=== PATIENT | female | born 1980 | race Caucasian/White ===

== ENCOUNTER → 2018-08-24 12:21 | Outpatient (CLI) | payer BC, SELFPAY ==
[2018-08-24 12:49] LABS: Absolute Lymphocyte Count 2.05 X10^3/ul (0.83-4.51); Absolute Neutrophil Count 4.8 X10^3/uL (2.0-7.7); Basophil# 0.04 X10^3/uL; Basophil% 0.5 % (0-1); Eosinophil# 0.19 X10^3/uL; Eosinophils% 2.5 % (0-5); Hematocrit 37.1 % (37-47); Hemoglobin 11.7 g/dl (12.0-15.0); Lymphocyte # 2.05 X10^3/ul (4.0); Lymphocyte % 26.7 % (19-41); Mean Corp Hgb Conc 31.5 g/gl (32-36); Mean Corpuscular Hgb 26.6 pg (27.0-32.0); Mean Corpuscular Volume 84.3 fL (81-99); Monocyte# 0.64 X10^3/uL; Monocyte% 8.3 % (0-10); Neutrophil # 4.75 X10^3/uL (2.7-7.7); Neutrophil % 61.9 % (47-70); POSITIVE COUNT NO; POSITIVE DIFFERENTIAL NO; POSITIVE MORPHOLOGY NO; Platelet Count 342 K/mm3 (150-450); RBC Distribution Width CV 15.5 % (11.6-14.6); RBC Distribution Width SD 48.3 fl (35.1-43.9); White Blood Count 7.7 K/mm3 (4.4-11.0)
[2018-08-24 13:23] LABS: T4 Free Direct 0.91 ng/dL (0.76-1.46); Thyroid Stim Hormone (TSH) 2.53 uIU/mL (0.358-3.74)
== END ==
PROVIDERS: Family Provider Family Medicine; PCP Family Medicine; Referring Provider Obstetrics & Gynecology; Visit Provider Obstetrics & Gynecology
DX: N93.9 Abnormal uterine and vaginal bleeding, unspecified (principal)
CPT/HCPCS: 36415; 84439; 84443; 85025

== ENCOUNTER → 2018-09-01 14:28 | Outpatient (CLI) | payer BC, SELFPAY ==
--- NOTE | 2018-09-01 14:30 | US_ITS ---
STUDY: ULTRASOUND TRANSVAGINAL CLINICAL: Female, 37 years old. Irregular menstruation TECHNIQUE: Transvaginal COMPARISON: None. FINDINGS: The uterus is somewhat anteverted and measures 10.5 x 5.4 x 4.7 cm with an endometrial stripe thickness of 6.4 mm. An IUD is in the endometrial canal. Both ovaries are visualized and demonstrate normal Doppler flow with the right measuring 2.9 x 2.2 x 1.6 cm and the left 3.5 x 2.4 x 1.8 cm. A 1.4 cm cyst is in the right ovary. There is no free fluid in the cul-de-sac. US/Pelvic (Non ) IMPRESSION: An IUD is in good position. A 1.4 cm right ovarian cyst. The study is otherwise normal Electronically Signed: Avinash Rm MD at 4:20 EDT Tel , Service support ,
--- NOTE | 2018-09-01 14:30 | US_ITS ---
STUDY: ULTRASOUND TRANSVAGINAL CLINICAL: Female, 37 years old. Irregular menstruation TECHNIQUE: Transvaginal COMPARISON: None. FINDINGS: The uterus is somewhat anteverted and measures 10.5 x 5.4 x 4.7 cm with an endometrial stripe thickness of 6.4 mm. An IUD is in the endometrial canal. Both ovaries are visualized and demonstrate normal Doppler flow with the right measuring 2.9 x 2.2 x 1.6 cm and the left 3.5 x 2.4 x 1.8 cm. A 1.4 cm cyst is in the right ovary. There is no free fluid in the cul-de-sac. US/Transvaginal Non- IMPRESSION: An IUD is in good position. A 1.4 cm right ovarian cyst. The study is otherwise normal Electronically Signed: Avinash Rm MD at 4:20 EDT Tel , Service support ,
== END ==
PROVIDERS: Family Provider Family Medicine; PCP Family Medicine; Referring Provider Obstetrics & Gynecology; Visit Provider Obstetrics & Gynecology
DX: N93.9 Abnormal uterine and vaginal bleeding, unspecified (principal); N83.201 Unspecified ovarian cyst, right side
CPT/HCPCS: 76830; 76856

== ENCOUNTER → 2018-09-07 14:08 | Outpatient (CLI) | payer BC, SELFPAY ==
--- NOTE | 2018-09-07 | EMB_PTH ---
PATIENT: MARQUIS BRAVO LOC: [facility] U#:[id number] AGE/SX: 44/F ROOM: RE09/07/[address]: Dr. Lavinia Day MD : 1980 BED: DIS: SPEC #: [id number] RECD: 09/07/18 13:58 STATUS: ANGELICA MICKY #: [id number] LONG: 09/07/18 00:[address]: Lavinia Day DEPT: SURGICAL PATHOLOGY RECD BY: Nadine Booker ENTERED: 09/08/18 09:01 SP TYPE: ENDOM BX/C ERICKA DR: Dr. Alex Guerrero MD Tissues: Endometrium, NOS Procedures: Surgery Specimen Level IV HEADER OPERATION: Endometrial biopsy PRE-OP DIAGNOSIS: Abnormal uterine bleeding TISSUE SUBMITTED: Endometrium MICROSCOPIC DIAGNOSIS Endometrial biopsy: Secretory endometrium. SJ:rei 09/08/18 MICROSCOPIC DESCRIPTION Slides are reviewed. GROSS DESCRIPTION Received is one container labeled with the patient's name and not further designated. The specimen consists of multiple irregular fragments of pink soft tissue that in aggregate measure 2 x 1 x 0.1 cm. The specimen is totally submitted in one cassette. / SJ:rg 09/07/18 TC:4 CPT: 81781
== END ==
LOC: LABSPEC 14:10
PROVIDERS: Family Provider Family Medicine; PCP Family Medicine; Referring Provider Obstetrics & Gynecology; Visit Provider Obstetrics & Gynecology
DX: N93.9 Abnormal uterine and vaginal bleeding, unspecified (principal)
CPT/HCPCS: 88305

== ENCOUNTER 2018-11-12 10:42 | Day surgery (SDC) | payer BC, SELFPAY ==
[2018-10-26 13:49] VITALS: BMI 46.2
[2018-11-12] VITALS (12 sets, daily range): BP systolic 110–140; BP diastolic 57–80; PULSE 64–83; RESP 16–18; TEMP 36.3–37.4; O2SAT 93–99; BMI 45.5
--- NOTE | 2018-11-12 06:33 | HP.PCM_ITS ---
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 Is patient in pain?: No Allergies No Known Allergies Allergy (Verified 09/07/18 09:26) Medications Citalopram [Celexa] 20 mg PO DAILY 11/16/15 [History Confirmed 09/07/18] Cyclobenzaprine [Flexeril] 10 mg PO 4X/DAY 11/16/15 [History Confirmed 09/07/18] Iron Carbonyl [Feosol] 45 mg PO DAILYCM 11/16/15 [History Confirmed 09/07/18] Vitamin B Complex 1 ea PO DAILY 11/16/15 [History Confirmed 09/07/18] topiramate 50 mg tablet 50 mg PO BID 08/24/18 [History Confirmed 09/07/18] Is last menstrual period known: No Post menopausal: No Patient : No : No [facility] Medical History DVT (deep venous thrombosis) (Acute) Family History Mother H/O: hysterectomy Aunt H/O: hysterectomy Grandmother H/O: hysterectomy Social History number of children: 2 current occupational status: employed current occupation: [employer] Smoking Status: Never smoker alcohol intake: current alcohol intake frequency: holidays/special occasions only substance use type: does not use seatbelt use: always do you feel safe at home: Yes 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 She has had AUB failed medical management. Female Reproductive History Cycle Length: 21-35 Questions: Metorrhagia: No, Sexually active: Yes, Dyspareunia: No Pregancy History 3 Elective abortions Hx Para 2 Spontaneous abortions 1 Hx # Term Pregnancies Ectopic pregnancies Hx # Pregnancies Multiple births # of living children 2 Past Pregnancies Del. Date Name GA/Weeks Outcome Route Bth Weight Gen Labor Lgth Anesthesia Del Locatn Provider FOB Unknown Omnserrat 2004 Unknown Ray 2010 ROS Const Constitutional: Denies poor appetite, headache(s), fever(s), increased appetite, weight gain, weight loss or fatigue ENT ENT: Denies dry mouth GI GI: Reports as per HPI; denies vomiting, nausea, abdominal pain or constipation : Denies nipple discharge Skin Skin/Breast: Denies hair loss, change in hair, dry skin, breast pain, breast skin changes, breast lump or nipple discharge Exam Const General: cooperative, healthy appearing, comfortable, no acute distress, well developed Nutritional Appearance: average body habitus Orientation: alert HENMT Head: normal to inspection, normocephalic Ears: hearing grossly normal bilaterally, external ears normal Nose: external nose normal, nares normal Face and sinus: normal facial exam Neck Neck: normal visual inspection, trachea midline, no lymphadenopathy Thyroid: thyroid normal Resp Effort & Inspection: normal respiratory effort Musc Other: gross motor intact no deficits, full bilateral strength Skin General: no rashes or lesions noted Neuro Motor: muscle tone normal throughout Assessment & Plan Problems 1. Dysmenorrhea N94.6 2. Abnormal uterine bleeding N93.9 plan tvh bs Plan discussed alternatives. discussed surgical risks including risks of anesthesia, infection, bleeding, injury to bowel, bladder or blood vessels, and patient wishes to proceed with surgery. plan perioperative anticoagulation. UPDATE- I have seen the patient and performed any clinically relevant updates to the history and physical exam. Lavinia Day MD
[2018-11-12 11:18] LABS: Internal QC Validated? YES +Cl - CLEAR BKGD
[2018-11-12 11:22] LABS: Pregnancy, Urine Negative Negative
[2018-11-12] MEDS: Enoxaparin 40 MG/0.4 ML Syringe SC (11:43)
[2018-11-12] MEDS: Phenazopyridine 95 MG Tablet 190 MG PO (11:43)
--- NOTE | 2018-11-12 12:50 | HYST_PTH ---
PATIENT: MARQUIS BRAVO LOC: [facility] U#:[id number] AGE/SX: 38/F ROOM: RE11/12/[address]: Dr. Lavinia Day MD : 1980 BED: DIS: 11/13/2018 SPEC #: [id number] RECD: 11/12/18 15:06 STATUS: ANGELICA MICKY #: [id number] LONG: 11/12/18 12:[address]: Lavinia Day DEPT: SURGICAL PATHOLOGY RECD BY: Pedro Villalobos ENTERED: 11/13/18 12:13 SP TYPE: HYSTERECT OTHR DR: Dr. Alex Guerrero MD Tissues: Uterus, NOS Procedures: Surgery Specimen Level V HEADER OPERATION: Total vaginal hysterectomy, bilateral salpingectomy PRE-OP DIAGNOSIS: Dysmenorrhea; abnormal uterine bleeding TISSUE SUBMITTED: Uterus, cervix, bilateral fallopian tubes MICROSCOPIC DIAGNOSIS Uterus, cervix, bilateral fallopian tubes, vaginal hysterectomy and bilateral salpingectomy: Cervix - chronic inflammation and squamous metaplasia. Endometrium - proliferative endometrium. Myometrium - focal superficial adenomyosis. Bilateral fallopian tubes - no pathologic diagnosis. Paratubal cyst. SJ:rg 11/16/18 MICROSCOPIC DESCRIPTION Slides are reviewed. GROSS DESCRIPTION Received in fixative is one container labeled with the patient's name and designated uterus, cervix, bilateral fallopian tubes. The specimen consists of a hysterectomy specimen consisting of uterus with cervix and detached bilateral fallopian tubes. The uterus with cervix weighs 143 gm and measures 10 x 6 x 5 cm. The serosal surface is haddad, glistening. The ectocervical mucosa is unremarkable. The external os is oval in contour. The endocervical canal measures 3.5 cm in length and the endocervical mucosa is haddad, glistening and unremarkable. The triangular endometrial cavity measures 6 cm in length and up to 3.5 cm in width. The endometrium is haddad, glistening without mass lesion and measures up to 0.2 cm in thickness. Sections of the uterine wall do not reveal any mass lesion and it measures up to 2.5 cm in thickness. The detached fallopian tubes are not identified as right or left and measures 4.5 cm in length and 0.5 cm in diameter and 5 cm in length and 0.6 cm in diameter. The fimbrial ends are identified. Sections reveal unremarkable cut surfaces. Sections of one of the fallopian tubes also show a cyst filled with clear fluid measuring 0.5 cm in greatest dimension. Medical Review Specialist sections are submitted in eight cassettes as follows: 1 - anterior cervix, 2 - posterior cervix, 3 & 4 - anterior uterine wall, 5 & 6 - posterior uterine wall, 7 - one fallopian tube, 8 - second fallopian tube and paratubal cyst. / MARSHALL:rei 11/13/18 TC:5 CPT: 44478
[2018-11-12] MEDS: Vasopressin 20 UNITS/ML Vial (13:00)
--- NOTE | 2018-11-12 14:05 | PCM.OPRPT ---
Problem List (1) Abnormal uterine bleeding Status: Acute Comment: plan tvh bs (2) Dysmenorrhea Status: Acute Report of Operation Date of Procedure: 11/12/18 Pre-Operative Diagnosis: aub Post-Operative Diagnosis: same Surgery/Procedure Performed:: TVH BS Description of Surgical Findings:: normal uterus tubes ovaries log hauler: Natalia Lawson Type of Anesthesia:: General Special Medications: fidelina Specimen's removed: uterus tubes Drains: ledbetter Estimated Blood Loss (mL): 150 Fluids Replaced: crystalloid Description of Procedure: Patient was taken to the operating room and was placed under general anesthesia was prepped and draped in normal sterile fashion in the dorsal lithotomy position. Preoperative antibiotics and SCDs and Ledbetter catheter was placed inside the bladder. Weighted speculum was placed in the vagina and the anterior and posterior lip of the cervix was grasped with 2 Nedra clamps and circumferentially injected with dilute vasopressin. A circumferential incision was made with a scalpel and the posterior cul-de-sac was entered into sharply and a longneck speculum was placed. The anterior cul-de-sac was also dissected down and entered into sharply and the uterosacral ligaments were clamped cut and suture ligated bilaterally followed by the cardinal ligaments which were Clamped cut and suture ligated bilaterally with 0 Monocryl. The uterus serially descended and progressive bites were taken bilaterally up to the level of the utero-ovarian ligament bilaterally which was clamped transected and double ligated with 0 Monocryl suture and 0 Vicryl free tie. Bilateral fallopian tubes and ovaries were well visualized and noted be within normal limits and the bilateral fallopian tubes were transected across the base with a Margarita clamp and removed and sutured with 0 Vicryl suture. Excellent hemostasis was noted. Posterior peritoneum was reapproximated with 2-0 Vicryl and a modified Anne stitch was placed through the posterior vaginal cuff and bilateral uterosacral ligaments across the posterior cul-de-sac skimming along to provide apical support to the vagina. There was some oozing noted along the peritoneal cuff and so Fidelina was applied in the cul-de-sac during the closure. The vagina was closed with [id number] 0 Vicryl pop offs including the posterior and anterior peritoneum in the reapproximation. Excellent hemostasis was noted. All instruments removed from the vagina clear urine was noted at the end of the procedure and patient was awoken and taken recovery in stable condition. Grafts/Implants Used: none - Complications none - Admit VTE Documentation VTE Present on Admission: No VTE Mechan Device Prophylaxis: SCD's VTE Pharm Prophylaxis ordered?: Yes
--- NOTE | 2018-11-12 14:08 | OP.PCM_ITS ---
Problem List (1) Abnormal uterine bleeding Status: Acute Comment: plan tvh bs (2) Dysmenorrhea Status: Acute Report of Operation Date of Procedure: 11/12/18 Pre-Operative Diagnosis: aub Post-Operative Diagnosis: same Surgery/Procedure Performed:: TVH BS Description of Surgical Findings:: normal uterus tubes ovaries educational psychologist: Natalia Lawson Type of Anesthesia:: General Special Medications: fidelina Specimen's removed: uterus tubes Drains: ledbetter Estimated Blood Loss (mL): 150 Fluids Replaced: crystalloid Description of Procedure: Patient was taken to the operating room and was placed under general anesthesia was prepped and draped in normal sterile fashion in the dorsal lithotomy position. Preoperative antibiotics and SCDs and Ledbetter catheter was placed inside the bladder. Weighted speculum was placed in the vagina and the anterior and posterior lip of the cervix was grasped with 2 Nedra clamps and c ircumferentially injected with dilute vasopressin. A circumferential incision was made with a scalpel and the posterior cul-de-sac was entered into sharply and a longneck speculum was placed. The anterior cul-de-sac was also dissected down and entered into sharply and the uterosacral ligaments were clamped cut and suture ligated bilaterally followed by the cardinal ligaments which were Clamped cut and suture ligated bilaterally with 0 Monocryl. The uterus serially descended and progressive bites were taken bilaterally up to the level of the utero-ovarian ligament bilaterally which was clamped transected and double ligated with 0 Monocryl suture and 0 Vicryl free tie. Bilateral fallopian tubes and ovaries were well visualized and noted be within normal limits and the bilateral fallopian tubes were transected across the base with a Margarita clamp and removed and sutured with 0 Vicryl suture. Excellent hemostasis was noted. Posterior peritoneum was reapproximated with 2-0 Vicryl and a modified Anne stitch was placed through the posterior vaginal cuff and bilateral uterosacral ligaments across the posterior cul-de-sac skimming along to provide apical support to the vagina. There was some oozing noted along the peritoneal cuff and so Fidelina was applied in the cul-de-sac during the closure. The vagina was closed with [id number] 0 Vicryl pop offs including the posterior and anterior peritoneum in the reapproximation. Excellent hemostasis was noted. All instruments removed from the vagina clear urine was noted at the end of the procedure and patient was awoken and taken recovery in stable condition. Grafts/Implants Used: none - Complications none - Admit VTE Documentation VTE Present on Admission: No VTE Mechan Device Prophylaxis: SCD's VTE Pharm Prophylaxis ordered?: Yes
[2018-11-12] MEDS: Lactated Ringers 1,000 ML 125 ML IV (16:25)
[2018-11-12] MEDS: HYDROmorphone 1 MG/ML Syringe IV (16:25)
[2018-11-12] MEDS: Ketorolac 30 MG/ML Syringe IV (20:45)
[2018-11-12] MEDS: Topiramate 25 MG Tablet 75 MG PO (21:06)
[2018-11-12] MEDS: Nortriptyline 25 MG Capsule 50 MG PO (21:06)
[2018-11-13 02:00] VITALS: BP 97/58; PULSE 77; RESP 16; TEMP 37.4; O2SAT 94
[2018-11-13] MEDS: Ketorolac 30 MG/ML Syringe IV ×2 (02:06→07:45)
[2018-11-13] MEDS: Lactated Ringers 1,000 ML 125 ML IV (02:07)
[2018-11-13 06:03] LABS: Hematocrit 36.4 % (37-47); Mean Corpuscular Hgb 27.8 pg (27.0-32.0); Mean Corpuscular Volume 84.3 fL (81-99); Mean Platelet Vol. 9.6 fl (6.2-12.0); Platelet Count 366 K/mm3 (150-450); RBC Distribution Width CV 14.4 % (11.6-14.6); RBC Distribution Width SD 43.5 fl (35.1-43.9); Red Blood Count 4.32 M/mm3 (4.2-5.4); White Blood Count 10.9 K/mm3 (4.4-11.0)
[2018-11-13 06:09] LABS: Scan Indicated on CBC? Y/N NO
[2018-11-13 06:16] LABS: Creatinine, Serum 0.74 mg/dL (0.55-1.02); EST Glomerular Filtration Rate 94 mL/min (>60); Est Glom Filt Rate - Afr Amer 114 mL/min (>60)
[2018-11-13 07:38] VITALS: PULSE 92; RESP 18; TEMP 37.1; O2SAT 95
[2018-11-13] MEDS: Citalopram 20 MG Tablet PO (07:45)
[2018-11-13] MEDS: 0.9% NaCl Peripheral Flush Adult/Peds IV (07:45)
[2018-11-13] MEDS: Topiramate 25 MG Tablet 75 MG PO (07:45)
[2018-11-13] MEDS: Enoxaparin 40 MG/0.4 ML Syringe SC (10:13)
--- NOTE | 2018-11-13 10:21 | DCINST_ITS ---
Discharge Diet: No Restrictions Discharge Activity: Return to Normal Activity, May Not Drive, May Shower May resume sexual activity in: 6-8 weeks Call your doctor if your incision/area has: Continuous Slow Oozing, Sudden Increased Bleeding, Increased Pain/ Swelling, Increased Redness, Foul Smelling Discharge Call your doctor if you observe: Fever of 101 or Higher, Inability to urinate, Inability to have a bowel movement, Using more than one pad per hour Allergies/Adverse Reactions: Allergies No Known Allergies Allergy (Verified 11/05/18 11:32) Medications to take at Discharge Citalopram [Celexa] 20 mg PO DAILY 11/16/15 topiramate 50 mg tablet 75 mg PO BID 08/24/18 Nortriptyline HCl [Pamelor] 50 mg PO QHS 11/05/18 Naproxen [Naprosyn] 250 - 500 mg PO Q8H PRN PRN #30 tablet 11/12/18 Oxycodone HCl/Acetaminophen [Percocet 5-325] 1 - 2 tablet PO Q4H PRN PRN 7 Days #28 tablet 11/12/18 The following prescriptions were given: Oxycodone HCl/Acetaminophen [Percocet 5-325] 1 - 2 tablet PO Q4H PRN PRN 7 Days #28 tablet PRN Reason: Moderate-Severe pain Naproxen [Naprosyn] 250 - 500 mg PO Q8H PRN PRN #30 tablet PRN Reason: MILD PAIN Orders to be completed after discharge: Type & Screen Time Frame: 11/12/18, Location: None Selected Primary Care Physician: Alex Guerrero MD [Primary Care Provider] - Test Results: Test results from this visit will be discussed in further detail at your follow- up appointment, if applicable. Please Follow Up With: Lavinia Day MD - [phone]
[2018-11-13] MEDS: oxyCODONE 5 MG Tablet PO (11:42)
[2018-11-13 11:49] VITALS: BP 114/61; PULSE 88; RESP 18; TEMP 37.3; O2SAT 96
== END 2018-11-13 14:07 | disposition home or self-care (01) ==
LOC: SDC 10:43 → AC 10:44 → MS3 11-13 08:22
PROVIDERS: Anesthesiology; Family Provider Family Medicine; PCP Family Medicine; Referring Provider Obstetrics & Gynecology; Visit Provider Obstetrics & Gynecology
PROC: (CPT 58260; principal; 2018-11-12 12:30)
DX: N93.9 Abnormal uterine and vaginal bleeding, unspecified (principal); N94.6 Dysmenorrhea, unspecified; N87.9 Dysplasia of cervix uteri, unspecified; N80.0 Endometriosis of uterus; N83.8 Other noninflammatory disorders of ovary, fallopian tube and broad ligament
CPT/HCPCS: 00944; 58262; 36415; 81025; 82565; 85027; 86850; 86900; 88307; J7120; A4216; J2405

== ENCOUNTER → 2019-10-25 08:13 | Outpatient (CLI) | payer BC, SELFPAY ==
[2018-12-21 10:43] VITALS: BMI 45.5
[2019-10-25 10:22] LABS: Anion Gap 6 (5-15); BUN 14 mg/dL (7-18); BUN/Creat Ratio 16.9 RATIO (10-20); Calcium,Total 8.6 mg/dL (8.5-10.1); Chloride 109 mmol/L (98-107); Cholesterol 189 mg/dL (200); Creatinine, Serum 0.83 mg/dL (0.55-1.02); EST Glomerular Filtration Rate 82 mL/min (>60); Est Glom Filt Rate - Afr Amer 99 mL/min (>60); Glucose 85 mg/dL (74-106); High Density Lipoprotein 52 mg/dL; Potassium 3.5 mmol/L (3.5-5.1); Sodium Level 140 mmol/L (136-145); Triglycerides 60 mg/dL; Very Low Density Lipoprotein 12 mg/dL (5-40)
[2019-10-25 10:24] LABS: Vitamin D,25 Hydroxy 26.5 ng/mL (29.95-100.01)
== END ==
LOC: MFPLAB 08:14
PROVIDERS: Family Provider Family Medicine; PCP Family Medicine; Referring Provider Family Medicine; Visit Provider Family Medicine
DX: Z00.00 Encounter for general adult medical examination without abnormal findings (principal)
CPT/HCPCS: 36415; 80048; 80061; 82306

== ENCOUNTER → 2020-11-03 09:39 | Outpatient (CLI) | payer BC, SELFPAY ==
[2019-12-22 09:33] VITALS: BMI 45.5
[2020-11-03 12:24] LABS: Vitamin D,25 Hydroxy 24.2 ng/mL
[2020-11-03 12:25] LABS: Anion Gap 3 (5-15); BUN 12 mg/dL (7-18); BUN/Creat Ratio 14.5 RATIO (10-20); Calcium,Total 8.6 mg/dL (8.5-10.1); Chloride 111 mmol/L (98-107); Cholesterol 185 mg/dL (200); Creatinine, Serum 0.83 mg/dL (0.55-1.02); EST Glomerular Filtration Rate 81 mL/min (>60); Est Glom Filt Rate - Afr Amer 99 mL/min (>60); Glucose 87 mg/dL (74-106); High Density Lipoprotein 52 mg/dL; Potassium 3.7 mmol/L (3.5-5.1); Sodium Level 141 mmol/L (136-145); Triglycerides 112 mg/dL; Very Low Density Lipoprotein 22 mg/dL (5-40)
== END ==
PROVIDERS: PCP Family Medicine; Referring Provider Family Medicine; Visit Provider Family Medicine
DX: Z00.00 Encounter for general adult medical examination without abnormal findings (principal); E55.9 Vitamin D deficiency, unspecified
CPT/HCPCS: 36415; 80048; 80061; 82306

== ENCOUNTER → 2021-06-01 07:15 | Outpatient (CLI) | payer BC, SELFPAY ==
[2021-05-16 14:49] VITALS: BMI 42.7
--- NOTE | 2021-06-01 07:15 | MRI_ITS ---
STUDY: MRI LEFT KNEE REASON FOR EXAM: Left knee pain, patellar dislocation 11/17/2020. TECHNIQUE: Standardized fat and water weighted pulse sequences were obtained in all 3 orthogonal planes. COMPARISON: Radiographs 05/16/2021. FINDINGS: There is mild intrasubstance myxoid degeneration of the medial meniscus without discrete medial meniscal tear. Normal hyaline cartilage of the medial femorotibial compartment. Normal medial femoral condyle and tibial plateau. Normal medial collateral ligamentous complex (MCL). Normal distal semimembranosus, gracilis and semitendinosus tendons. Normal lateral meniscus. Normal hyaline cartilage of the lateral femorotibial compartment. Normal lateral femoral condyle and tibial plateau. Normal proximal tibiofibular articulation. Normal lateral collateral (fibular) ligament. Normal popliteus tendon. Normal biceps femoris tendon. Normal anterior cruciate ligament (ACL). Normal posterior cruciate ligament (PCL). There is lateral subluxation of the patella (T2 axial image 12). There is a shallow femoral trochlea (T2 axial images 15, 16). Normal hyaline cartilage of the patellofemoral compartment. There is a chronic sprain of the of the medial patellofemoral ligament (T2 axial image 10). Normal visualized quadriceps tendon. Normal patellar tendon. Normal Hoffa''s fat pad. There is a small joint effusion. There is edema in the anterior subcutis adipose space. There is a small cyst in the proximal tibia at the insertion site of the anterior cruciate ligament. MRI/Lower Ext Joint Only (Routine) IMPRESSION: Lateral subluxation of the patella and chronic sprain of the medial patellofemoral ligament. Small joint effusion. No demonstrated meniscal tear. The TT-TG distance is 16 mm. Electronically Signed: Kade Orozco MD at 9:16 EDT Tel , Service support ,
== END ==
PROVIDERS: PCP Family Medicine; Referring Provider Orthopaedic Surgery; Visit Provider Orthopaedic Surgery
DX: S83.282A Other tear of lateral meniscus, current injury, left knee, initial encounter (principal); G89.29 Other chronic pain; M25.562 Pain in left knee
CPT/HCPCS: 73721

== ENCOUNTER 2021-08-06 15:00 | Outpatient (RCR) | payer BC, SELFPAY ==
[2021-05-16 14:49] VITALS: BMI 42.7
--- NOTE | 2021-06-27 15:43 | HP.PTEVAL_ITS ---
Patient's Visit Information MARQUIS BRAVO is a 40 year old F referred to Physical Therapy by Dr. Reggie Whitney DO with a diagnosis of Left Knee Patellar Instability Lateral. Date of Evaluation: 06/27/21 Physical Therapist: Eileen Burnett DPT - Visit Plan Frequency: 1x/Week Duration: 4 Weeks Plan: Focus on LE and core strength/stabilization. HEP Given IE: quad set, SLR, clams, SLS, sit to stand - Subjective Patient reports that she dislocated her Left knee cap slid in October- this is not the first time this has happened. Sometime she has to put pressure on it to get back into place but can't remember if it happened this time. Still has pain in the knee and feels unstable. Went to chiropractor which didn't help so she broke down to see Ortho. She saw Dr. Stubbs who did an MRI which did not find anything damaged but she has very little groove for the patella. She needs to see if therapy works but then she will have to have surgery. She has had therapy before at [facility] which helped for a few years but it doesn't take much for it to slip out. She is very careful to make sure there is nothing to trip over. Worst: 6/10 Today: 2/10 Agg: Heavy pushing/pulling- getting her foot caught Eases: Aleve Best: 0/10. Pain is located along the medial aspect of the knee along the patellar tendon. Radiates up the ITBand. Describes the pain as achy. No N/T in the toes or loss or change in bowel or bladder. Reports the knee cap slides daily but last dislocation has been years. Both knees are bad but the left is worse. Reports that she is pretty active. 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 Sleep: not disturbed PMHx: Depression, migraines Meds: Citaopram, Topomax, Nortriptolen- dental surgery 1995, DNC 2008, Hysterectomy 2018. - Objective Posture: FH, RS- can correct with verbal cues but does not maintain. Gait: no deviation noted. SLS: 12 sec then LOB increased sway and instability. HR/TR: a ble. ROM: WNL. Palpation: tender along medial joint line- hyper mobility of the patella. Strength: Core: fair minus, Hip: 4/5 throughout, Knee: 4+/5, Ankle: 5/5. Flex: HS: no restriction, Gastroc: no restriction - Goals Goal 1:: Patient will be I with HEP and progression Goal Time Frame: 4-6 Weeks Goal 2:: Patient will maintain proper posture t/o tx session to demo increased core s/s Goal Time Frame: 4-6 Weeks Goal 3:: Patient will demo 5/5 strength in LE where deficit Goal Time Frame: 4-6 Weeks Goal 4:: Patient will report no dislocation or knee instability for 1 week Goal Time Frame: 4-6 Weeks - Rehabilitation Potential Physical Therapy Diagnosis: Patient presents with hypermobility- she has decreased LE and core strength/stabilization and muscular endurance leading to instability, poor posture and increased pain with ADL's. Rehabilitation Potential: Good - Anticipated Interventions Patient/Client Instruction: Educate patient on: Benefits of Fitness Program Therapeutic Exercise to Include: Strength training, Endurance training, Balance training, Agility training, Body mechanics, Postural training, Flexibilty training, Gait and locomotor training, Dynamic Lumbar Stabilization, Scapular Strength/Stabilization For the Purpose of:: To improve muscle performance and motor function TENS: Yes Cryotherapy (ice pack, ice massage): Yes Thermo therapy (hot pack): Yes Ultrasound (thermal/non thermal): Yes Thank you for the opportunity to evaluate your patient. For Medicare and Medicare HMO plans, please review the plan of care and approve it. It will need to be FAXED BACK to us at [phone] for Medicare purposes. For Medicare only, by signing this I certify the plan of care. Please let me know if there are questions or concerns regarding this plan of care. Physician Signature: Date:
--- NOTE | 2021-08-06 15:30 | HP.PTDCSUM_ITS ---
It has been my pleasure to treat MARQUIS BRAVO referred by Dr. Reggie Whitney DO, with the diagnosis of Left Knee Patellar Instability Lateral for a total of 9 visit(s). Discharge Date: Please see the following information for a summary of their discharge status. Subjective: Pt reports her pain is still at 2-310 L knee Pain Intensity (Out of 10): 3 R knee Pain Intensity (Out of 10): 0 % Improvement: 50 Objective/Function: L knee pain 2-3. Pt reports she continues to improve with her postural awareness. B LE strength is 5/5. Pt notes no sense if knee instability over the past couple weeks. Pt is I with HEP and is going to trans ition to I HEP Goal 1:: Patient will be I with HEP and progression Goal Progress: Goal Met Goal 2:: Patient will maintain proper posture t/o tx session to demo increased core s/s Goal Progress: Progressing Goal 3:: Patient will demo 5/5 strength in LE where deficit Goal Progress: Goal Met Goal 4:: Patient will report no dislocation or knee instability for 1 week Goal Progress: Goal Met Plan: Discharge to HEP If there are questions or concerns regarding this patient's physical therapy, please feel free to call me at [phone]. Thank you for the referral of this patient. Sincerely, Jose Hawkins, PT, ATC Balance/Gait/Functional tests - Balance/Special Test Scores Lower Extremity Functional Score: 79
== END 2021-08-06 19:00 | disposition home or self-care (01) ==
LOC: PT 15:00
PROVIDERS: PCP Family Medicine; Referring Provider Orthopaedic Surgery; Visit Provider Orthopaedic Surgery
DX: M23.52 Chronic instability of knee, left knee (principal)
CPT/HCPCS: 97110; 97161; 97164

== ENCOUNTER 2021-11-06 07:54 | Emergency (ER) | payer BC, SELFPAY ==
[2021-11-06 07:56] VITALS: BP 127/98; PULSE 92; RESP 18; TEMP 36; O2SAT 97; BMI 42.5
--- NOTE | 2021-11-06 08:16 | ED.VIS.BACK ---
HPI History of Present Illness Chief Complaint: Back Informant: patient Onset/Context/Timing Onset: Days Context: Gradual Onset Injury: lifting, twisting, bending, direct trauma, fall, assault, repetitive motion and work related Timing: Continuous Quality: Sharp and Aching Location: Lumbar, Buttock and Right Leg Current Severity: Mild Maximum Severity: Moderate Worsened by: improves with Movement, Bending and Lifting Relieved by: Remaining Still Associated Symptoms Associated Symptoms: Radiation to Right Leg; Negative for Numbness, Tingling, Radiation to Left Leg, Fever, Abdominal Pain, Dysuria, Unable to Ambulate, Unable to Transfer, Urinary Retention, Urinary Incontinence, Constipation and Fecal Incontinence Narrative Narrative: 41-year-old female history of prior DVT currently not on any type anticoagulation also history of obesity. No prior back history or surgery. States of the last week she had gradual onset of lower lumbar and right SI pain. At times does radiate to her buttock or proximal hamstring. She denies any weakness or numbness. No urinary symptoms. No incontinence of bowel or bladder or retention. No numbness or weakness to either lower extremity. Worse with movement twisting and bending. Better remaining still. No fever. Prior similar symptoms: No Recent Illness/Hospitalization: No [facility] Medical History (Updated 11/06/21 @ 08:[address] Jonathon Kingston MD) DVT (deep venous thrombosis) Home Medications citalopram 20 mg PO DAILY 11/16/15 [History Last Taken Unknown] topiramate 50 mg tablet 75 mg PO BID 08/24/18 [History Last Taken Unknown] nortriptyline 50 mg PO QHS 11/05/18 [History Last Taken Unknown] cetirizine 10 mg capsule 10 mg PO DAILY PRN 01/17/21 [History Last Taken Unknown] Allergy/AdvReac Type Severity Reaction Status Date / Time No Known Allergies Allergy Verified 11/06/21 07:56 Family History Mother H/O: hysterectomy Aunt H/O: hysterectomy Grandmother H/O: hysterectomy Surgical History H/O dilation and curettage History of dental surgery History of dermabrasion History of total vaginal hysterectomy (TVH) Social History number of children: 2 current occupational status: employed current occupation: [employer] Smoking Status: Never smoker alcohol intake: current alcohol intake frequency: holidays/special occasions only substance use type: does not use caffeine: Yes what type of physical activity do you participate in: walking seatbelt use: always do you feel safe at home: Yes additional social history: Jeremías EM Patient works at [employer] ROS ED ROS Narrative Denies recent illness. Right lower back pain. Review of Systems ROS Unobtainable: Denies due to encephalopathy Constitutional Constitutional ED: Denies fever(s) or subjective Eyes Eyes: Denies change in vision ENT ENT ED: Denies ear pain Cardiovascular Cardiovascular: Denies chest pain Respiratory/Chest Respiratory/Chest: Denies dyspnea Gastrointestinal Gastrointestinal: Denies abdominal pain, nausea or vomiting Genitourinary Genitourinary ED: Denies dysuria Musculoskeletal Musculoskeletal: Reports back pain; Denies myalgias Integumentary Denies rash Neurologic Neurologic: Denies headache(s) Psychiatric Psychiatric: Denies depression Endocrine Endocrinology: Denies polyuria Hematologic/Lymphatic Hematologic/Lymphatic: Denies easy bruising Allergic/Immunologic Allergic/Immunologic ED: Denies urticaria EXAM Physical Exam Narrative Exam Narrative: 41-year-old female no acute distress sitting on edge of the bed. Vital signs stable afebrile. HEENT exam unremarkable neck nontender. Lungs clear to auscultation bilaterally. Heart regular rhythm no murmur. Abdomen soft nontender normal bowel sounds no peritoneal signs. Morbidly obese. Cervical thoracic spine nontender. Lumbar tenderness around L2-3. No redness or warmth. No signs of trauma or bruising. Also tenderness to the right SI joint. Both lower extremities are neurovascularly intact with normal motor strength and sensation. No cauda equina. No saddle anesthesia. Normal medial thigh sensation. 5 out of 5 strength with dorsi plantar flexion. Negative straight leg raise bilaterally. Neurologic exam normal. Upper extremities have normal range of motion and motor strength. Const Vital Signs: 11/06/21 07:56 Temperature 96.8 F L Temperature Source Temporal Pulse Rate 92 Respiratory Rate 18 Blood Pressure 127/98 H Blood Pressure Mean 107 Pulse Ox 97 Oxygen Delivery Method Room Air Positive well nourished, well developed and obese; Negative for cachectic, contractures or unkempt General Appearance ED: well developed and NAD; Negative for unkempt, cachectic, contractures or pallor Nutritional Appearance: obese; Negative for cachectic HEENT Reports moist mucous membranes Negative for trauma or tenderness Eyes PERRL and EOMs intact bilaterally Neck no lymphadenopathy, supple and no JVD Resp normal respiratory effort and clear to auscultation bilaterally Effort and Inspection: Negative for pain with movement or other Auscultation: Negative for rales or rhonchi Cardio regular rate, regular rhythm, S1 normal heart sound, S2 normal heart sound and no murmurs GI normal to inspection, nondistended, normoactive bowel sounds, soft to palpation, non-tender, non-distended and no masses Inspection: Negative for abdominal distention Auscultation: Negative for hyperactive bowel sounds Palpation: Negative for tender, guarding or rebound tenderness present Back/Spine normal to inspection; Negative for no thoracic nor lumbar tenderness Back/Spine Narrative: Lumbar tenderness. Right SI tenderness. No signs of trauma. No redness or warmth. General Back: Negative for CVA tenderness or scar(s) Cervical Spine: Negative for cervical spine tenderness and Negative for paracervical muscle tenderness Thoracic Spine / Upper Back: Negative for paraspinal muscle tenderness Lumbar Spine / Lower Back: straight leg raise negative bilaterally Extremity normal to inspection General Extremety ED: Negative for edema or tenderness General Extremity: Negative for edema Neuro oriented x3 and no sensory deficits noted Sensorium / Orientation: alert; Negative for confused, lethargic or stuporous Motor Exam: strength 5/5 throughout Psych mental status grossly normal Appearance: Negative for unkempt Mood & Affect: Negative for depressed or tearful Skin no rashes or lesions noted and no wounds General Skin Exam: Negative for jaundice or pallor MDM MDM MDM Narrative Medical decision making narrative: 41-year-old female has exam and history consistent with right sciatica. She will be given 2 [place] here for pain. I explained to both her and her significant other though the way to treat this is anti-inflammatories. Ice to the area. Rest. She will be given a couple days off work. And then light duty for 1 week after that. She does not need any imaging or labs at this time. Discharge Plan Triage Chief Complaint: Back ED Provider: Jonathon Kingston Dx/Rx/DC Orders Clinical Impression: Acute right-sided back pain with sciatica Instructions: ED Sciatica Prescriptions: No Action topiramate [Topamax] 50 mg tablet 75 mg PO BID RF: 0 Zyrtec 10 mg capsule 10 mg PO DAILY PRN (Reason: Allergy Symptoms) RF: 0 citalopram 20 MG tablet 20 mg PO DAILY RF: 0 nortriptyline 25 MG capsule 50 mg PO QHS RF: 0 Primary Care Provider: Alex Guerrero Referrals: Alex Guerrero MD [Primary Care Provider] - 1 Week if not improving Activity Restrictions/Additional Instructions: Ice to your right lower back to decrease pain and inflammation. Motrin 600 to 800 mg 3 times a day to decrease the pain and inflammation. Hot shower, warm bath to relax the muscles. This should progressively improve if not improving or getting worse follow-up your primary care physician. If is not improving in the next 1 to 2 weeks you may need an MRI. If you get weakness in your lower extremities or loss of control your bowel or bladder return to the ER. Disposition Disposition: Home, Self Care
[2021-11-06] MEDS: HYDROcodone Bitartrate/Apap 5/325 Tablet PO (08:24)
== END 2021-11-06 08:29 | disposition home or self-care (01) ==
PROVIDERS: Emergency Provider Emergency Medicine; PCP Family Medicine
DX: M54.41 Lumbago with sciatica, right side (principal); E66.9 Obesity, unspecified; Z68.41 Body mass index [BMI] 40.0-44.9, adult
CPT/HCPCS: 99283

== ENCOUNTER 2021-12-22 09:00 | Outpatient (CLI) | payer BC, SELFPAY ==
[2021-12-23 01:01] LABS: Anion Gap 3 (5-15); BUN 17 mg/dL (7-18); BUN/Creat Ratio 21.8 RATIO (10-20); Calcium,Total 8.1 mg/dL (8.5-10.1); Chloride 110 mmol/L (98-107); Cholesterol 197 mg/dL (200); Creatinine, Serum 0.78 mg/dL (0.55-1.02); EST Glomerular Filtration Rate 87 mL/min (>60); Est Glom Filt Rate - Afr Amer 105 mL/min (>60); Glucose 100 mg/dL (74-106); High Density Lipoprotein 56 mg/dL; Potassium 4.1 mmol/L (3.5-5.1); Sodium Level 138 mmol/L (136-145); Triglycerides 58 mg/dL; Very Low Density Lipoprotein 12 mg/dL (5-40)
== END 2021-12-22 23:59 | disposition short-term general hospital (02) ==
LOC: LAB 18:54
PROVIDERS: PCP Family Medicine; Referring Provider Family Medicine; Visit Provider Family Medicine
DX: Z00.00 Encounter for general adult medical examination without abnormal findings (principal)
CPT/HCPCS: 36415; 80048; 80061

== ENCOUNTER 2022-01-11 15:34 | Outpatient (CLI) | payer BC, SELFPAY ==
--- NOTE | 2022-01-11 15:36 | BI_ITS ---
MAMMOGRAPHY - BILATERAL SCREENING REASON FOR EXAM: Female, 41 years old. Routine annual screening examination. PERTINENT HISTORY: Non-contributory. TECHNIQUE: Digital bilateral breast samson (3D mammographic acquisition) in the CC and MLO projections. 2-D mediolateral oblique (MLO) and craniocaudad (CC) views of both breasts were obtained. CAD: Full Field Digital Mammography with Computer Added Detection was performed. COMPARISON: None. Baseline examination. FINDINGS: Breast Composition: The breasts are almost entirely fatty. There are no dominant masses or suspicious calcifications. Small benign-appearing bilateral axillary lymph nodes. No other significant abnormalities are identified. BI/SCRN MAMM (CAD)W/SAMSON BILAT IMPRESSION: Negative screening mammogram. Yearly followup mammogram recommended. (A) ASSESSMENT CATEGORY: BIRADS Category 2: Benign. A letter regarding these results will be sent to the patient by the facility within 30 days. Approximately 10% of breast cancers are not detected by mammography. A normal mammogram should not delay biopsy of a clinically suspicious abnormality. [id number] Electronically Signed: Deric Christine MD at 8:25 EST ,
== END 2022-01-11 23:59 | disposition home or self-care (01) ==
PROVIDERS: PCP Family Medicine; Referring Provider Family Medicine; Visit Provider Family Medicine
DX: Z12.31 Encounter for screening mammogram for malignant neoplasm of breast (principal)
CPT/HCPCS: 77063; 77067

== ENCOUNTER 2022-02-10 12:12 | Emergency (ER) | payer BC, SELFPAY ==
[2022-02-10 12:12] VITALS: BP 132/100; PULSE 79; RESP 14; TEMP 36.2; O2SAT 99; BMI 46.8
--- NOTE | 2022-02-10 13:15 | EDS_ITS ---
HPI History of Present Illness HPI Narrative: Patient presents with left ankle injury that occurred today. Patient states she stepped in a hole and inverted her ankle. Patient states that her pain is dull but stabbing at times. Patient states her pain is worse with weightbearing. Patient states nothing seems to help with the pain. Patient states she felt a pop when this happened. Patient denies any paresthesias or weakness. Patient denies any other injuries. Chief Complaint: Lower Extremity Injury Informant: patient Occured/Mechanism Comment: Inversion injury Onset/Context/Timing Onset: Today Context: Sudden Onset Timing: Continuous Quality of Pain: Aching and Stabbing Location: Left ankle Worsened by: Weightbearing Relieved by: Nothing Associated Symptoms Associated Symptoms: Negative for Parasthesia, Weakness and Loss of Funtion PFSH PFSH Medical History DVT (deep venous thrombosis) Home Medications citalopram 20 mg PO DAILY 11/16/15 [History Last Taken Unknown] topiramate 50 mg tablet 75 mg PO BID 08/24/18 [History Last Taken Unknown] nortriptyline 50 mg PO QHS 11/05/18 [History Last Taken Unknown] cetirizine 10 mg capsule 10 mg PO DAILY PRN 01/17/21 [History Last Taken Unknown] bupropion HCl 300 mg 24 hr tablet, extended release 300 mg PO QAM 01/21/22 [History Last Taken Unknown] cyclobenzaprine 10 mg tablet 10 mg PO TID PRN 01/21/22 [History Last Taken Un known] meloxicam 15 mg tablet 15 mg PO DAILY 01/21/22 [History Last Taken Unknown] sumatriptan succinate 25 mg tablet See Rx Instructions PO .COMPLEX 01/21/22 [History Last Taken Unknown] Allergy/AdvReac Type Severity Reaction Status Date / Time No Known Allergies Allergy Verified 02/10/22 12:14 Family History Mother H/O: hysterectomy Aunt H/O: hysterectomy Grandmother H/O: hysterectomy Father Myocardial infarction Surgical History H/O dilation and curettage History of dental surgery History of dermabrasion History of total vaginal hysterectomy (TVH) Social History number of children: 2 current occupational status: employed current occupation: [employer] Smoking Status: Never smoker alcohol intake: current alcohol intake frequency: holidays/special occasions only substance use type: does not use caffeine: Yes what type of physical activity do you participate in: walking seatbelt use: always do you feel safe at home: Yes additional social history: Jeremías MANAV Patient works at [employer] ED Constitutional Constitutional ED: Denies chills or fever(s) Eyes Eyes: Denies blurry vision or change in vision ENT ENT ED: Denies rhinorrhea or sore throat Cardiovascular Cardiovascular: Denies chest pain or palpitations Respiratory/Chest Respiratory/Chest: Denies cough or dyspnea Gastrointestinal Gastrointestinal: Denies nausea or vomiting Genitourinary Genitourinary ED: Denies dysuria or hematuria Musculoskeletal Musculoskeletal: Denies back pain or neck pain Integumentary Denies abscess or rash Neurologic Neurologic: Denies headache(s) or weakness Allergic/Immunologic Allergic/Immunologic ED: Denies mouth swelling or urticaria EXAM Physical Exam Const Vital Signs: 02/10/22 12:12 Temperature 97.1 F L Temperature Source Temporal Pulse Rate 79 Respiratory Rate 14 Blood Pressure 132/100 H Blood Pressure Mean 110 Pulse Ox 99 Oxygen Delivery Method Room Air Positive well nourished, well developed and obese General Appearance ED: well developed and NAD Nutritional Appearance: obese HEENT Reports moist mucous membranes normocephalic Neck full ROM Extremity Extremity Narrative: There is tenderness and mild edema over the lateral malleolus of the left ankle. There is no bony crepitance or step-off. There is no ecchymosis noted. There is no tenderness over the fifth metatarsal. There is no tenderness over the proximal fibula. Pedal pulses are equal bilateral. Sensation was intact to light touch in all digits. Capillary refill was less than 2 seconds in all digits. Neuro oriented x3, CN's II-XII intact bilaterally, moves all extremities and no sensory deficits noted Sensorium / Orientation: alert Motor Exam: strength 5/5 throughout MDM MDM MDM Narrative Medical decision making narrative: X-rays of the left ankle were obtained. There are 3 views. On my interpretation, there is no acute fracture. There is no dislocation. There is some no tissue swelling. Radiologist also interpreted the x-rays and agrees. Patient was given an Aircast. Patient was instructed to ice and elevate the left ankle. Patient was instructed to take Tylenol or ibuprofen as needed for pain. Patient was instructed to follow-up with her primary care physician in 5 to 7 days. Patient understood and was agreeable with the plan. All questions were answered. Radiography Diagnostic Testing: Clinical Impression(s) from Imaging Studies Ankle X-Ray 02/10/22 13:17 IMPRESSION: Normal x-ray examination of the ankle. Electronically Signed: Floyd Brooks MD at 13:48 EDT , Discharge Plan Triage Chief Complaint: Lower Extremity Injury ED Provider: Jeff Edouard Dx/Rx/DC Orders Clinical Impression: Left ankle sprain Instructions: ED Ankle Sprain (Adult) Prescriptions: No Action topiramate [Topamax] 50 mg tablet 75 mg PO BID RF: 0 Zyrtec 10 mg capsule 10 mg PO DAILY PRN (Reason: Allergy Symptoms) RF: 0 bupropion HCl [Wellbutrin XL] 300 mg tablet extended release 24 hr 300 mg PO QAM RF: 0 meloxicam [Mobic] 15 mg tablet 15 mg PO DAILY RF: 0 sumatriptan succinate [Imitrex] 25 mg tablet See Rx Instructions PO .COMPLEX RF: 0 cyclobenzaprine 10 mg tablet 10 mg PO TID PRNRF: 0 citalopram 20 MG tablet 20 mg PO DAILY RF: 0 nortriptyline 25 MG capsule 50 mg PO QHS RF: 0 Primary Care Provider: Alex Guerrero Referrals: Alex Guerrero MD [Primary Care Provider] - 3-5 Days Disposition Disposition: Home, Self Care
--- NOTE | 2022-02-10 13:17 | RAD_ITS ---
STUDY: X-RAY - LEFT ANKLE REASON FOR EXAM: Female, 41 years old. Injury/Pain TECHNIQUE: 3 view(s) of the ankle. COMPARISON: None. FINDINGS: Normal visualized distal tibia and fibula. Normal medial and lateral malleoli. Normal tibiotalar articulation and ankle mortise. Normal visualized talus and calcaneus. Small plantar calcaneal enthesophyte. The visualized subtalar, talonavicular, calcaneocuboid and tarsal articulations are normal. The soft tissue structures are unremarkable. RAD/Ankle min 3 Views IMPRESSION: Normal x-ray examination of the ankle. Electronically Signed: Floyd Brooks MD at 13:48 EDT ,
[2022-02-10 14:30] VITALS: RESP 16
== END 2022-02-10 15:00 | disposition home or self-care (01) ==
PROVIDERS: Emergency Provider Emergency Medicine; PCP Family Medicine; Visit Provider Emergency Medicine
DX: S93.402A Sprain of unspecified ligament of left ankle, initial encounter (principal); Z68.42 Body mass index [BMI] 45.0-49.9, adult; W18.42XA Slipping, tripping and stumbling without falling due to stepping into hole or opening, initial encounter; E66.9 Obesity, unspecified
CPT/HCPCS: 73610; 99282

== ENCOUNTER → 2022-05-10 | Outpatient (CLI) | payer BC, SELFPAY ==
--- NOTE | 2022-05-10 11:49 | NEURO ---
NCS and/or EMG Patient Report Ordering Doctor: Alex Guerrero DATE OF SERVICE: 05/10/22 Indication: Twelve years of worsening bilateral hand/wrist pain, numbness and tingling (left slightly more than right). 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 No localized or radicular neck pain. Findings: Nerve conduction studies were performed in the right and left upper extremities. The right median motor study recording the abductor pollicis brevis showed a normal amplitude, prolonged distal latency and slowed conduction velocity. The right ulnar motor study recording the abductor digiti minimi showed a normal amplitude, normal distal latency and normal conduction velocity. No conduction block or focal slowing was present across the elbow. Please note the proximal velocity was likely spuriously fast due to the deep course of the nerve. The right median sensory response recording digit two showed a reduced amplitude, prolonged latency and markedly slowed conduction velocity. The right ulnar sensory response recording digit five showed a normal amplitude, latency and conduction velocity. The right radial sensory response recording over the extensor snuff box showed a normal amplitude, latency and conduction velocity. The left median motor study recording the abductor pollicis brevis showed a normal amplitude, prolonged distal latency and slowed conduction velocity. The left ulnar motor study recording the abductor digiti minimi showed a normal amplitude, normal distal latency and normal conduction velocity. No conduction block or focal slowing was present across the elbow. Please note the proximal velocity was likely spuriously fast due to the deep course of the nerve. The left median sensory response recording digit two showed a reduced amplitude, prolonged latency and markedly slowed conduction velocity. The left ulnar sensory response recording digit five showed a normal amplitude, latency and conduction velocity. The left radial sensory response recording over the extensor snuff box showed a normal amplitude, latency and conduction velocity. Needle EMG of the right upper extremity muscles was performed. No denervation was seen in any muscle. All motor unit morphology, activation and recruitment patterns were normal. Needle EMG of the left upper extremity was omitted given the paucity of findings on the right, the symmetry of the nerve conduction studies and the similar quality of described symptomatology. Impression: This is an abnormal study. 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 The pathophysiology is primarily demyelination, though there is secondary sensory axon loss bilaterally. These findings are compatible with the clinical diagnosis of carpal tunnel syndrome. In addition, there is no electrophysiologic evidence of a superimposed cervical radiculopathy, brachial plexopathy or other entrapment neuropathy in the right upper extremity. Duncna Jerry D.O. Multi Select Codes Neurology Neurology Interp Codes: 45013-52 Musc test done w/n test comp (interp) and 46530-38 [facility] cnd test 9-10 studies (interp)
== END | disposition home or self-care (01) ==
LOC: PSN 10:23
PROVIDERS: PCP Family Medicine; Referring Provider Family Medicine; Visit Provider Family Medicine
DX: M25.531 Pain in right wrist (principal); M25.532 Pain in left wrist
CPT/HCPCS: 95886; 95911

== ENCOUNTER 2022-05-21 05:44 | Day surgery (SDC) | payer BC, SELFPAY ==
[2022-05-21] VITALS (8 sets, daily range): BP systolic 98–118; BP diastolic 53–77; PULSE 55–74; RESP 16–18; TEMP 36.4–36.6; O2SAT 93–100; BMI 39.2
[2022-05-21] MEDS: Lactated Ringers 1,000 ML 15 ML IV (06:32)
--- NOTE | 2022-05-21 07:06 | HP.PCM_ITS ---
History and Physical Date of Admission: 05/21/22 [facility] [address] [place] [address] OFFICE VISIT Date of Service:? 05/15/22 MR#: [id number] Acct: [id number] Name:MARQUIS ROWE Rep #: [id number] : 1980 ? ? Provider: Dr. Reggie Whitney DO Age/Sex:? 41/F ? ? Location: [facility] [place] Status: Signed Intake Intake Visit Reasons:?BL HANDS Is patient in pain?: Yes Allergies No Known Allergies Allergy (Verified 05/15/22 14:42) Medications citalopram 20 mg tablet 20 mg PO DAILY 11/16/15 [History Confirmed 05/15/22] topiramate 50 mg tablet (Topamax) 75 mg PO BID 08/24/18 [History Confirmed 05/15/22] nortriptyline 25 mg capsule 50 mg PO QHS 11/05/18 [History Confirmed 05/15/22] cetirizine 10 mg capsule (Zyrtec) 10 mg PO DAILY PRN Allergy Symptoms 01/17/21 [History Confirmed 05/15/22] bupropion HCl 300 mg 24 hr tablet, extended release (Wellbutrin XL) 300 mg PO QAM 01/21/22 [History Confirmed 05/15/22] cyclobenzaprine 10 mg tablet 10 mg PO TID PRN 01/21/22 [History Confirmed 05/15/22] meloxicam 15 mg tablet (Mobic) 15 mg PO DAILY 01/21/22 [History Confirmed 05/15/22] sumatriptan succinate 25 mg tablet (Imitrex) See Rx Instructions PO .COMPLEX 01/21/22 [History Confirmed 05/15/22] PFSH Medical History?(Updated 05/15/22 @ 15:02 by Betina Aparicio) Bilateral carpal tunnel syndrome DVT (deep venous thrombosis) Surgical History? H/O dilation and curettage History of dental surgery History of dermabrasion History of total vaginal hysterectomy (TVH) Family History? Mother H/O: hysterectomyAunt H/O: hysterectomyGrandmother H/O: hysterectomyFather Myocardial infarction Social History? number of children:? 2 current occupational status:? employed current occupation:? [employer] Smoking Status:? Never smoker alcohol intake:? current alcohol intake frequency: holidays/special occasions only substance use type:? does not use caffeine:? Yes what type of physical activity do you participate in:? walking seatbelt use:? always do you feel safe at home:? Yes additional social history:? Jeremías MANAV Patient works at [employer] Smart[employer] Details: Parts of this documentation were recorded by a scribe, this documentation accurately reflects the service provided and the decisions made by me, Dr. Reggie Whitney, 05/15/22 [id number]. MARQUIS BRAVO is a 41 year old F here today for? bilateral hand, left greater than right. Patient complains of pain and numbness/tingling. Patient states that she has had these symptoms for years with her symptoms worsening over the last 6 months. Patient notes that her pain is over her thenar area and into her wrist and elbow. Patient complains of numbness of her thumb, index, middle and ring finger. She states her symptoms are worse at night and she struggles with hand function in the morning. Patient has wrist braces which she wears at night for a year. She is dropping items and has difficulty opening items. Patient had an EMG. She saw a chiropractor for adjustments of her wrist and elbow which was helpful slightly. Patient denies any injections or therapy. Ortho Exam General General: Yes no acute distress Neurologic: Yes alert and Yes oriented x3 Psychologic: Yes reasonable and appropriate Right Wrist/Hand Skin/Wound: No Swelling, No Ecchymosis and Yes capillary refill normal Right Wrist: Yes ROM-Extension 0-60, ROM-Flexion 0-80, ROM-Pronation 0-80, ROM- Supination 0-90, Tinel's and Phalen's; No Thenar Atrophy or Hypothenar Atrophy WRIST: mild tinels Left Wrist/Hand Skin/Wound: Yes CDI, No Swelling, No Ecchymosis and No erythema Left Wrist: Yes ROM-Extension 0-60, Yes ROM-Flexion 0-80, Yes ROM-Pronation 0-80, Yes ROM-Supination 0-90, Yes Tinel's and Yes Phalen's WRIST: positive tinels. good wrist range of motion Left Elbow ELBOW: ttp medial epicondyle. full elbow range of motion, no pain with resisted elbow flexion or wrist flexion Supplemental Info 05/10/2022 EMG nerve conduction study bilateral upper extremity: This is an abnormal study. 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 The pathophysiology is primarily demyelination, though there is secondary sensory axon loss bilaterally. These findings are compatible with the clinical diagnosis of carpal tunnel syndrome. In addition, there is no electrophysiologic evidence of a superimposed cervical radiculopathy, brachial plexopathy or other entrapment neuropathy in the right upper extremity. Coding Level of Care Code Off vis,est,level 4 Diagnoses Bilateral carpal tunnel syndrome? G56.03 Assessment and Plan Assessment and Plan (1) Bilateral carpal tunnel syndrome: ?Status:?Acute Plan Details Additional Comments: Spoke with the patient about due to failed conservative treatment, she is a candidate for a carpal tunnel release. Spoke with her about the anatomy of the hand/wrist. Explained the surgery procedure and recovery. Spoke with her about the risks of continued tingling. She may also do nerve glides, injections, the rapy, anti-inflammatories. She is not able to take motrin due to past kidney issues. Spoke with her about the restrictions post op with lifting. She should not lift greater than half a pound for 2 weeks, and then 5 pounds at 3 weeks.? She will have a right carpal tunnel injection at the same time. Follow up for her 2 week post op or sooner if pain, swelling, numbness or associated symptoms, or concerns develop.? All questions answered. Patient in agreement of plan. 05/15/22 1520 <Electronically signed by Reggie Whitney DO> Date Reggie Whitney DO Cosigner Signature: Date I have re-examined the patient. There are no clinical changes since date of exam
[2022-05-21] MEDS: Cefazolin 2 GM in 0.9% Normal Saline 100 ML IV (07:30)
[2022-05-21] MEDS: Lidocaine 1% /Epi 1:100 (20ml) 20 ML Vial (07:41)
[2022-05-21] MEDS: Betamethasone/Betamethasone 30 MG/5 ML Vial (07:59)
[2022-05-21] MEDS: Bupivacaine Mpf 0.5% 30 ML VIAL (07:59)
--- NOTE | 2022-05-21 08:02 | OP.PCM_ITS ---
Report of Operation Date of Procedure: 05/21/22 Description of Surgical Findings:: Preoperative diagnosis; left carpal tunnel syndrome, right carpal tunnel syndrome Postoperative diagnosis; same Procedure: Left open carpal tunnel release , right carpal tunnel injection Anesthesia: Local with MAC Tourniquet time; 14 minutes 250 mm Hg Complications: None Indication for procedure; This is a 41-year-old female with long-standing symptoms consistent with carpal tunnel syndrome the patient did have electrodia gnostic evidence of this and has failed conservative treatment. Risks benefits and alternatives were reviewed including risks of bleeding infection nerve artery tissue damage need for further surgery and continued pain and symptoms, hypersensitivity to scar and Pillar pain. Procedure; The patient was met in the preoperative holding area the operative extremity was identified by both patient and physician and was marked the patient was met by anesthesia and brought back to the operating room and transferred to the operating table in the supine position. Anesthesia was started. A well-padded tourniquet was placed on the operative upper extremity. The patient was prepped and draped in the usual sterile fashion. A timeout was called to ensure the proper patient procedure and extremity were being contemplated. 0.5 percent lidocaine with epinephrine was injected into the incisional area. An Esmarch was used to exsanguinate the extremity. The tourniquet was inflated to 250 mmHg. A midline incision was made with a 15 blade scalpel between the thenar and hypothenar eminence. This was carried down through the skin and subcutaneous tissue. Zahra retractors were then used, a deep blade scalpel was used to make a deep incision in the palmar aponeurosis. The zahra retractors were then placed deep to this and the transverse carpal ligament was identified a perforation was made with a scalpel and a Littler scissors were used to complete the release of the transverse carpal ligament distally under direct visualization with the tips facing ulnarly until the perivascular fat was reached. Then turning our attention proximally using a tension slide technique the proximal extent of the transverse carpal ligament was released . There was noted to be hourglass configuration to the median nerve and hypertrophy of the transverse carpal ligament without other findings. The wound was thoroughly irrigated and was closed with 4-0 nylon vertical mattress stitches. Dressing was applied in the form of xeroform 4 x 4, web roll and an annette wrap. The right upper extremity was prepped with alcohol and 1/2 cc of Celestone 30 mg per 5 mL and 1/2 cc of 0.5% bupivacaine was injected. no intraoperative complications patient tolerated the procedures well and was transferred to the PACU. All counts were correct.
--- NOTE | 2022-05-21 08:03 | DCINST_ITS ---
Discharge Instructions Activity Keep extremity elevated above heart level: Operative Extremity Dressing / Incision Call your doctor if you observe: Shortness of breath and Chest pain Additional Dressing/Incision Instructions:: Ice and elevate operative extremity next 72 hours. Keep dressing on clean and dry for 48 hours then may remove and allow warm soapy water to rinse over incision but do not submerge until sutures are out. Then apply bandaid over incision and change daily. encourage finger range of motion. Not lift more than 1/2 pound. Minimize narcotic use only as needed and directed, may use OTC NSAID and Tylenol to supplement/substitute for pain control. Follow Up Care Please Follow Up With: Reggie Whitney DO When: 2 weeks Test Results: Test results from this visit will be discussed in further detail at your follow- up appointment, if applicable. Discharge Plan Admission Attending Provider: Reggie Whitney Primary Care Provider: Alex Guerrero Discharge Orders/Prescriptions Prescriptions: New oxycodone 5 mg tablet 5 mg PO Q4H PRN (Reason: pain) 4 Days Qty: 10 0RF No Action topiramate [Topamax] 50 mg tablet 75 mg PO BID Zyrtec 10 mg capsule 10 mg PO DAILY PRN (Reason: Allergy Symptoms) bupropion HCl [Wellbutrin XL] 300 mg tablet extended release 24 hr 300 mg PO QAM meloxicam [Mobic] 15 mg tablet 15 mg PO DAILY sumatriptan succinate [Imitrex] 25 mg tablet See Rx Instructions PO .COMPLEX PRN (Reason: Migraine Headache) Rx Instructions: take 1 tab at onset of headache; if no relief may repeat 1 tab after at least 2 hrs; max = 4 tabs/24 hr PO citalopram 20 MG tablet 20 mg PO DAILY nortriptyline 25 MG capsule 50 mg PO QHS Referrals / Follow Up: Alex Guerrero MD [Primary Care Provider] - Disposition Discharge Orders: Discharge Patient (Routine); Ordered 05/21/22 Ordered By: Dr. Reggie Whitney
== END 2022-05-21 09:06 | disposition home or self-care (01) ==
LOC: SDC 05:46 → AC 05:46
PROVIDERS: PCP Family Medicine; Referring Provider Orthopaedic Surgery; Visit Provider Orthopaedic Surgery
PROC: (CPT 64721; principal; 2022-05-21 07:15)
DX: G56.03 Carpal tunnel syndrome, bilateral upper limbs (principal); F32.A Depression, unspecified; F41.9 Anxiety disorder, unspecified; Z79.899 Other long term (current) drug therapy
CPT/HCPCS: 64721; 20526; 01810; J7120; J0702; J2405

== ENCOUNTER 2022-07-11 14:30 | Outpatient (RCR) | payer BC, SELFPAY ==
--- NOTE | 2022-06-13 15:10 | HP.PTEVAL_ITS ---
Patient's Visit Information MARQUIS BRAVO is a 41 year old F referred to Physical Therapy by JUAN PABLO Self with a diagnosis of B/L ANKLE STRENGTHENING ,LEFT ANKLE SPRAIN X2. Date of Evaluation: 06/13/22 Physical Therapist: Josue Lenz, PT, Cert MDT, OCS - Visit Plan Frequency: 2x /Week Duration: 4 Weeks Plan: CAM BOOT 2WEEKS OR ANKLE BRACE AT WORK. PT INTERVENTIONS STRENGTHENING ANKLE STABILIZERS ,FOOT INTRINSICS ,PROPRIOCEPTION , FUNCTIONAL STRENGTHNEING AND MODALTIES NEEDED - Subjective This 41 y/o female with physical therapy with left ankle sprain. Patient initially twisted left ankle 02/10/22 step in hole in parking lot then 2nd time walking in yard uneven area caused immediate pain. First episode did go to ER and x-rays for fracture. Patient seen DR genevieve kramer in boot and has crutches for couple days but recover from CTS . Patient uses ankle brace with steel boots at work. PA want CAM boot for 2weeks from 06/10/22. PA did x-rays which was -. Patient has pain with soreness with general activity with walking and standing and affects jobs . Patient sleeping okay at night . Denies paresthesia/tingling . Patient has difficulty with steps one step time. Patient has return to work full duty with ankle brace. Patient h/o has severe tendonitis left foot last year. Patient goals is no more paon and walk normal. VOCATION: [employer]. SOCIAL: - Pain Left Ankle Pain Intensity (Out of 10): 3 Pain Intensity Range: 10 - Objective POSTURE: frontal plan mechanics -normal. GAIT: mild antalgic gait left side with cam boot. PALPATION: tender ATLF, CFL. EMEMA: trimalleor joint 51 cm. AROM: dorsiflexion 10 degrees , eversion 10 degrees , inversion 50 degrees ,plantarflexion 70 degrees. MMT( peak force ) : anteriortibialis 28.6 ,peroneus 17.7,posteriortibials 18.0, G-S 24.4. PROPRIOCEPTION: poor -unable. G-S FLEXABLITY: WNL. SPECIAL TEST: ANTERIOR DRAWER 2+ ,.+ INVERSTION PAIN,TALAR TILT + - Balance/Special Test Scores Lower Extremity Functional Score: 33 - Goals Goal 1:: Patient to be I with HEP ankle Goal Time Frame: 4-6 Weeks Goal 2:: Patient to improve 70% improvement with increase gait and function Goal Time Frame: 4-6 Weeks Goal 3:: Patient to normalize gait Goal Time Frame: 4-6 Weeks Goal 4:: Patient improve proprioception WFL to walk on uneven surfaces Goal Time Frame: 4-6 Weeks Goal 5:: Patient to improve peak force by 5-10 ankle to improve gait Goal Time Frame: 4-6 Weeks Goal 6:: Patient to improve LFES score by 10 to improve gait and function Goal Time Frame: 4-6 Weeks - Rehabilitation Potential Physical Therapy Diagnosis: This patient sprain left ankle x2 with pain ,weakness ,poor proprioception, ,decrease gait with using CAM boot impairs ADLS and job demands thus benefit from skilled PT Rehabilitation Potential: Good - Anticipated Interventions Patient/Client Instruction: Educate patient on: Condition, Plan of Care For the Purpose of:: To decrease pain, To increase ROM, To improve muscle performance and motor function, To improve ability to perform ADL's, To increase tolerance to activity/condition/position, To improve ability of physical actions for home/community/work/leisure, To improve health of tissue, To decrease soft tissue restriction, To increase flexibility/ROM, To improve balance, To prevent re-injury Therapeutic Exercise to Include: Strength training, Power training, Endurance training, Balance training, Coordination, Flexibilty training, Active ROM Comment: ANKLE For the Purpose of:: To decrease pain, To increase ROM, To improve muscle performance and motor function, To improve ability to perform ADL's, To increase tolerance to activity/condition/position, To improve performance and independence with ADL's, To improve ability of physical actions for home/community/work/leisure, To improve gait and locomotor functions, To improve health of tissue, To decrease soft tissue restriction, To increase flexibility/ROM, To improve balance TENS: Yes IF ES: Yes Cryotherapy (ice pack, ice massage): Yes Thermo therapy (hot pack): Yes Ultrasound (thermal/non thermal): Yes For the Purpose of:: To decrease pain, To increase ROM, To improve nutrient delivery to tissue, To increase oxygenation perfusion, To improve health of tissue, To decrease soft tissue restriction Thank you for the opportunity to evaluate your patient. For Medicare and Medicare HMO plans, please review the plan of care and approve it. It will need to be FAXED BACK to us at [phone] for Medicare purposes. For Medicare only, by signing this I certify the plan of care. Please let me know if there are questions or concerns regarding this plan of care. Physician Signature: Date:
--- NOTE | 2022-07-11 15:03 | HP.PTDCSUM ---
It has been my pleasure to treat MARQUIS BRAVO referred by JUAN PABLO Self, with the diagnosis of B/L ANKLE STRENGTHENING ,LEFT ANKLE SPRAIN X2 for a total of 7 visit(s). Discharge Date: 07/11/22 Please see the following information for a summary of their discharge status. Subjective: Patient doing good. RTW today Left Ankle Pain Intensity (Out of 10): 2 % Improvement: 80 Objective/Function: GAIT: normal severiano. PROPRIOCEPTION: intact. AROM: DF 5 degrees ,PF 60 degrees ,IN 35 degrees ,EV 5 degrees. MMT: ANKLE GOOD Goal 1:: Patient to be I with HEP ankle Goal Progress: Goal Met Goal 2:: Patient to improve 70% improvement with increase gait and function Goal Progress: Goal Met Goal 3:: Patient to normalize gait Goal Progress: Goal Met Goal 4:: Patient improve proprioception WFL to walk on uneven surfaces Goal Progress: Goal Met Goal 5:: Patient to improve peak force by 5-10 ankle to improve gait Goal Progress: Goal Met Goal 6:: Patient to improve LFES score by 10 to improve gait and function Goal Progress: Goal Met Plan: D/C TO HEP Discharge Comments: HEP If there are questions or concerns regarding this patient's physical therapy, please feel free to call me at [phone]. Thank you for the referral of this patient. Sincerely, Josue Lenz PT, Cert MDT, OCS Balance/Gait/Functional tests - Balance/Special Test Scores Lower Extremity Functional Score: 68
== END 2022-07-11 19:00 | disposition home or self-care (01) ==
LOC: PT 14:30
PROVIDERS: PCP Family Medicine
DX: S93.402D Sprain of unspecified ligament of left ankle, subsequent encounter (principal); X58.XXXD Exposure to other specified factors, subsequent encounter
CPT/HCPCS: 97110; 97162

== ENCOUNTER → 2022-08-31 | Outpatient (CLI) | payer BC, SELFPAY ==
[2022-08-31 11:44] LABS: Anion Gap 5 (5-15); BUN 15 mg/dL (7-18); BUN/Creat Ratio 18.8 RATIO (10-20); Calcium,Total 8.3 mg/dL (8.5-10.1); Chloride 113 mmol/L (98-107); Cholesterol 205 mg/dL (200); EST Glomerular Filtration Rate 84 mL/min (>60); Est Glom Filt Rate - Afr Amer 102 mL/min (>60); Glucose 99 mg/dL (74-106); High Density Lipoprotein 61 mg/dL; Potassium 3.9 mmol/L (3.5-5.1); Sodium Level 141 mmol/L (136-145); Thyroid Stim Hormone (TSH) 1.19 uIU/mL (0.358-3.74); Triglycerides 73 mg/dL; Very Low Density Lipoprotein 15 mg/dL (5-40)
== END | disposition home or self-care (01) ==
LOC: LAB 10:48
PROVIDERS: PCP Family Medicine; Referring Provider Family Medicine; Visit Provider Family Medicine
DX: Z00.00 Encounter for general adult medical examination without abnormal findings (principal); E66.3 Overweight
CPT/HCPCS: 36415; 80048; 80061; 84443

== ENCOUNTER → 2022-10-07 | Outpatient (CLI) | payer BC, SELFPAY ==
--- NOTE | 2022-10-07 15:50 | RAD_ITS ---
STUDY: X-RAY - LUMBAR SPINE REASON FOR EXAM: Female, 41 years old. BACK PAIN TECHNIQUE: 4 view(s) of the lumbar spine were obtained. COMPARISON: None FINDINGS: Normal lumbar lordosis. Mild scoliosis. Oblique images negative for pars defects. There is a normal alignment of the vertebrae. Normal vertebral bodies and endplates. Normal disc space heights. The soft tissue structures are unremarkable. RAD/L/S Spine Min 4 Views IMPRESSION: Mild scoliosis Electronically Signed: Latrell Buenrostro MD at 23:39 EST ,
== END | disposition home or self-care (01) ==
LOC: MTRAD 15:49
PROVIDERS: PCP Family Medicine; Visit Provider Family Medicine
DX: M54.9 Dorsalgia, unspecified (principal)
CPT/HCPCS: 72110

== ENCOUNTER 2022-11-21 09:30 | Outpatient (RCR) | payer BC, SELFPAY ==
--- NOTE | 2022-10-23 16:21 | HP.PTEVAL ---
Patient's Visit Information MARQUIS BRAVO is a 41 year old F referred to Physical Therapy by Dr. Alex Guerrero MD with a diagnosis of BACK PAIN. Date of Evaluation: 10/23/22 Physical Therapist: Josue Lenz, PT, Cert MDT, OCS - Visit Plan Frequency: 2x /Week Duration: 4 Weeks Plan: PT INTERVTIONS SEEMA EX'S ,POSTURE/BODY MECHANICS ,PROGRESS TO DLS ,POSTURAL EX'S AND MODALTIES PRN - Subjective This 41 y/o female presents to physical therapy with back pain. Patient symptoms started ~ end of Aug . Patient symptoms was cumulative. affect of lifting bending. Patient has back pain usually gets better on own. Seen DrYaquelin initially ~ 4weeks prescribe prednisone, muscle relaxers and meloxicam ,which helped ,RTD ~ 2weeks ago cont with MEDS ,recommended PT and x-rays -. Location center of spine. Aggravating factors lifting ,sitting, bending ,standing. Patient notices shift with gait. Alleviating factors stretching MEDS. Denies paresthesia/tingling . Although occasional radiates to thighs. Coughing/sneezing+ ,Bowel/bladder-. Patient condition does not affect sleeping. No abnormal night pain. Patient pain affects QOL and job demands . SOCIAL: . VOCATION: [employer] - Pain Bilateral Back Pain Intensity (Out of 10): 1 Pain Intensity Range: 10 Comment: worse 8/10 - Objective POSTURE: mild forward posture. GAIT: reciprocal pattern. NEURO: intact denies paresthesia/tingling ,reflexes L3-4,L4-5 ,L5-S1 2/3. SYMMMTIES: align. MMT: quads/hams 4/5 ,hip flexion 4/5 ,ankle 5/5. LUMBAR ROM: flexion min loss pain ,extension min loss pain , side glides WFL. FLEXABLITY: hamstrings WFL - Special Tests L/S Slump test left side: Negative L/S Slump test right side: Negative L/S Left Straight Leg Raise: Negative L/S Right Straight Leg Raise: Negative Lumbar Standing: Flexion - Mechanical Response: No effect Lumbar Standing: Flexion - Symptoms During Testing: Increases Lumbar Standing: Flexion - Symptoms After Testing: Worse Lumbar Standing: Extension - Mechanical Response: No effect Lumbar Standing: Extension - Symptoms During Testing: Increases Lumbar Standing: Extension - Symptoms After Testing: No worse Lumbar Standing: Right Side Glides - Mechanical Response: No effect Lumbar Standing: Right Side [place] - Symptoms During Testing: No effect Lumbar Standing: Right Side [place] - Symptoms After Testing: No effect Lumbar Standing: Left Side [place] - Mechanical Response: No effect Lumbar Standing: Left Side [place] - Symptoms During Testing: No effect Lumbar Standing: Left Side [place] - Symptoms After Testing: No effect Lumbar Lying: Flexion - Mechanical Response: No effect Lumbar Lying: Flexion - Symptoms During Testing: Increases Lumbar Lying: Flexion - Symptoms After Testing: No worse Lumbar Lying: Extension - Mechanical Response: No effect Lumbar Lying: Extension - Symptoms During Testing: Increases Lumbar Lying: Extension - Symptoms After Testing: Better - Balance/Special Test Scores Oswestry Low Back Score: 30 - Goals Goal 1:: Patient to be I with HEP Goal Time Frame: 4-6 Weeks Goal 2:: Patient to improve posture/body mechanics 80% of the time . Goal Time Frame: 4-6 Weeks Goal 3:: Patient to improve lumbar ROM for function of recovery for job demands Goal Time Frame: 4-6 Weeks Goal 4:: Patient to improve back oswestry by 5 points or > to improve QOL and function. Goal Time Frame: 4-6 Weeks Goal 5:: Patient to demonstrate 60% or > to improve function and job demnads Goal Time Frame: 4-6 Weeks - Rehabilitation Potential Physical Therapy Diagnosis: Patient appears to have derangement central with possible disc involvement with symptoms worse with flexion better with extension ,symptoms worse with position and motion testing thus benefit from skilled PT Rehabilitation Potential: Good - Anticipated Interventions Patient/Client Instruction: Educate patient on: Condition, Plan of Care For the Purpose of:: To decrease pain, To increase ROM, To improve muscle performance and motor function, To improve ability to perform ADL's, To increase tolerance to activity/condition/position, To improve ability of physical actions for home/community/work/leisure, To improve health of tissue, To decrease soft tissue restriction, To increase flexibility/ROM, To reduce risk of recurrence, To prevent re-injury Therapeutic Exercise to Include: Strength training, Body mechanics, Postural training, Flexibilty training, Dynamic Lumbar Stabilization, Seema Exercises For the Purpose of:: To decrease pain, To increase ROM, To improve muscle performance and motor function, To increase tolerance to activity/condition/position, To improve ability of physical actions for home/community/work/leisure, To improve health of tissue, To decrease soft tissue restriction, To increase flexibility/ROM, To reduce risk of recurrence TENS: Yes IF ES: Yes Thermo therapy (hot pack): Yes Ultrasound (thermal/non thermal): Yes For the Purpose of:: To decrease pain, To increase ROM, To improve nutrient delivery to tissue, To increase oxygenation perfusion, To improve health of tissue, To decrease soft tissue restriction Thank you for the opportunity to evaluate your patient. For Medicare and Medicare HMO plans, please review the plan of care and approve it. It will need to be FAXED BACK to us at [phone] for Medicare purposes. For Medicare only, by signing this I certify the plan of care. Please let me know if there are questions or concerns regarding this plan of care. Physician Signature: Date:
--- NOTE | 2022-11-21 09:59 | HP.PTDCSUM ---
It has been my pleasure to treat MARQUIS BRAVO referred by Dr. Alex Guerrero MD, with the diagnosis of BACK PAIN for a total of 8 visit(s). Discharge Date: 11/21/22 Please see the following information for a summary of their discharge status. Subjective: Occasional flare ups Bilateral Back Pain Intensity (Out of 10): 0 % Improvement: 85 Objective/Function: POSTURE: WFL. GAIT: reciprocal pattern. LUMBAR ROM: flexion min loss ,extension WFL side glides min loss. MMT: quads/hams 5/5 ,4/5 hip, ankle 5/5 Goal 1:: Patient to be I with HEP Goal Progress: Goal Met Goal 2:: Patient to improve posture/body mechanics 80% of the time . Goal Progress: Goal Met Goal 3:: Patient to improve lumbar ROM for function of recovery for job demands Goal Progress: Goal Met Goal 4:: Patient to improve back oswestry by 5 points or > to improve QOL and function. Goal Progress: Goal Met Goal 5:: Patient to demonstrate 60% or > to improve function and job demnads Goal Progress: Goal Met Plan: D/C Discharge Comments: HEP If there are questions or concerns regarding this patient's physical therapy, please feel free to call me at [phone]. Thank you for the referral of this patient. Sincerely, Josue Lenz PT, Cert MDT, OCS Balance/Gait/Functional tests - Balance/Special Test Scores Oswestry Low Back Score: 1
== END 2022-11-21 19:00 | disposition home or self-care (01) ==
LOC: PT 09:30
PROVIDERS: PCP Family Medicine; Visit Provider Family Medicine
DX: M54.9 Dorsalgia, unspecified (principal)
CPT/HCPCS: 97110; 97161

== ENCOUNTER 2022-11-26 05:56 | Day surgery (SDC) | payer BC, SELFPAY ==
[2022-11-26] VITALS (7 sets, daily range): BP systolic 117–131; BP diastolic 67–87; PULSE 68–76; RESP 16–18; TEMP -12.7–36.9; O2SAT 93–100; BMI 45.6
[2022-11-26] MEDS: Lactated Ringers 1,000 ML 15 ML IV (06:49)
--- NOTE | 2022-11-26 07:18 | PCM.HP.BLA ---
History and Physical Date of Admission: 11/26/22 [facility] [address] [place] [address] OFFICE VISIT Date of Service:? 11/06/22 MR#: [id number] Acct: [id number] Name:MARQUIS ROWE Rep #: [id number] : 1980 ? ? Provider: Dr. Reggie Whitney DO Age/Sex:? 42/F ? ? Location: [facility] [place].[facility] Status: Signed Intake Vital Signs ? 05/21/2206:21 Height 5 ft Intake Visit Reasons:?RIGHT WRIST Allergies No Known Allergies Allergy (Verified 11/06/22 15:16) Medications citalopram 20 mg tablet 20 mg PO DAILY 11/16/15 [History Confirmed 11/06/22] topiramate 50 mg tablet (Topamax) 75 mg PO BID migraine 08/24/18 [History Confirmed 11/06/22] nortriptyline 25 mg capsule 50 mg PO QHS 11/05/18 [History Confirmed 11/06/22] cetirizine 10 mg capsule (Zyrtec) 10 mg PO DAILY PRN Allergy Symptoms 01/17/21 [History Confirmed 11/06/22] bupropion HCl 300 mg 24 hr tablet, extended release (Wellbutrin XL) 300 mg PO QAM 01/21/22 [History Confirmed 11/06/22] meloxicam 15 mg tablet (Mobic) 15 mg PO DAILY 01/21/22 [History Confirmed 11/06/22] sumatriptan succinate 25 mg tablet (Imitrex) See Rx Instructions PO .COMPLEX PRN Migraine Headache 01/21/22 [History Confirmed 11/06/22] PFSH Medical History?(Updated 05/21/22 @ 08:[address] Reggie Whitney, ) Anxiety Bilateral carpal tunnel syndrome Depression DVT (deep venous thrombosis) Migraine headache Non-smoker PONV (postoperative nausea and vomiting) Wears glasses Surgical History? H/O dilation and curettage History of dental surgery History of dermabrasion History of total vaginal hysterectomy (TVH) Family History? Mother H/O: hysterectomyAunt H/O: hysterectomyGrandmother H/O: hysterectomyFather Myocardial infarction Social History? number of children:? 2 current occupational status:? employed current occupation:? [employer] Smoking Status:? Never smoker alcohol intake:? current alcohol intake frequency: holidays/special occasions only substance use type:? does not use caffeine:? Yes what type of physical activity do you participate in:? walking seatbelt use:? always do you feel safe at home:? Yes additional social history:? Jeremías EM Patient works at [employer] Details: Parts of this documentation were recorded by a scribe, this documentation accurately reflects the service provided and the decisions made by me, Dr. Reggie Whitney, 11/05/22 1144. MARQUIS BRAVO is a 42 year old F here today for right hand. Patient notes that she is ready to move forward with surgery. She states that her pain is worsening and waking her up at night. Patient has numbness and tingling into her thumb, index and middle finger. She has tried bracing which was not helpful. She had an injection which was helpful for a few months. Ortho Exam General General: Yes no acute distress Neurologic: Yes alert and Yes oriented x3 Psychologic: Yes reasonable and appropriate Right Wrist/Hand Skin/Wound: No Ecchymosis, Yes nail intact and Yes capillary refill normal Right Wrist: Yes Tinel's and Phalen's; No Thenar Atrophy or Hypothenar Atrophy Left Wrist/Hand Skin/Wound: No Ecchymosis Supplemental Info 05/10/2022 EMG nerve conduction study bilateral upper extremity: This is an abnormal study. 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 The pathophysiology is primarily demyelination, though there is secondary sensory axon loss bilaterally. These findings are compatible with the clinical diagnosis of carpal tunnel syndrome. In addition, there is no electrophysiologic evidence of a superimposed cervical radiculopathy, brachial plexopathy or other entrapment neuropathy in the right upper extremity. Coding Level of Care Code Off vis,est,level 3 Diagnoses Bilateral carpal tunnel syndrome? G56.03 Assessment and Plan Assessment and Plan (1) Bilateral carpal tunnel syndrome: ?Status:?Acute Plan Spoke with the patient about carpal tunnel release procedure and recovery. She is unable to lift anything greater than half a pound for 2 weeks. She needs to keep her incision clean and dry following her surgery. We will put her on the surgery schedule for 11/26/22..? Risk and benefits of surgery reviewed including risk of bleeding infection nerve artery tissue damage need for further surgery continued pain continued symptoms.? Pillar pain and hypersensitivity Follow up for 2 week post op or sooner if pain, swelling, numbness or associated symptoms, or concerns develop.? All questions answered. Patient in agreement of plan. 11/06/22 0846 <Electronically signed by Reggie Whitney DO> Date Reggie Whitney DO Cosigner Signature: Date (if applicable) ? CC: ? ~ I have examined the patient and the H&P has been reviewed. There are no clinical changes since date of exam.
[2022-11-26] MEDS: Cefazolin 2 GM in 0.9% Normal Saline 100 ML IV (07:25)
[2022-11-26] MEDS: Bupiv/Epi 0.5% Mpf 30 ML Vial (07:40)
--- NOTE | 2022-11-26 07:54 | OP.PCM_ITS ---
Operative Report Date of Procedure: 11/26/22 Preoperative diagnosis; right carpal tunnel syndrome Postoperative diagnosis; same Procedure: Right open carpal tunnel release Anesthesia: Local with MAC Tourniquet time; 10 minutes 250 mm Hg Complications: None Indication for procedure; This is a 42-year-old female with long-standing s ymptoms consistent with carpal tunnel syndrome the patient did have electrodiagnostic evidence of this and has failed conservative treatment. Risks benefits and alternatives were reviewed including risks of bleeding infection nerve artery tissue damage need for further surgery and continued pain and symptoms, hypersensitivity to scar and Pillar pain. Procedure; The patient was met in the preoperative holding area the operative extremity was identified by both patient and physician and was marked the patient was met by anesthesia and brought back to the operating room and transferred to the operating table in the supine position. Anesthesia was started. A well-padded tourniquet was placed on the operative upper extremity. The patient was prepped and draped in the usual sterile fashion. A timeout was called to ensure the proper patient procedure and extremity were being contemplated. 0.5 percent lidocaine with epinephrine was injected into the incisional area. An Esmarch was used to exsanguinate the extremity. The tourniquet was inflated to 250 mmHg. A midline incision was made with a 15 blade scalpel between the thenar and hypothenar eminence. This was carried down through the skin and subcutaneous tissue. Zahra retractors were then used, a deep blade scalpel was used to make a deep incision in the palmar aponeurosis. The zahra retractors were then placed deep to this and the transverse carpal ligament was identified a perforation was made with a scalpel and a Littler scissors were used to complete the release of the transverse carpal ligament distally under direct visualization with the tips facing ulnarly until the perivascular fat was reached. Then turning our attention proximally using a tension slide technique the proximal extent of the transverse carpal ligament was released . There was noted to be hypertrophy of the transverse carpal ligament without other findings. The wound was thoroughly irrigated and was closed with 4-0 nylon vertical mattress stitches. Dressing was applied in the form of xeroform 4 x 4, web roll and an annette wrap. Tourniquet was let down there is no intraoperative complications patient tolerated the procedure well and was transferred to the PACU. All counts were correct.
--- NOTE | 2022-11-26 07:55 | DCINST_ITS ---
Discharge Instructions Dressing / Incision Additional Dressing/Incision Instructions:: Ice and elevate operative extremity next 72 hours. Keep dressing on clean and dry for 48 hours then may remove and allow warm soapy water to rinse over incision but do not submerge until sutures are out. Then apply bandaid over incision and change daily. encourage finger range of motion. Not lift more than 1/2 pound. Minimize narcotic use only as needed and directed, may use OTC NSAID and Tylenol to supplement/substitute for pain control. Follow Up Care Please Follow Up With: Reggie Whitney DO When: 2 weeks Test Results: Test results from this visit will be discussed in further detail at your follow- up appointment, if applicable. Discharge Plan Admission Primary Reason for Your Visit: Right carpal tunnel release Attending Provider: Reggie Whitney Primary Care Provider: Alex Guerrero Discharge Orders/Prescriptions Prescriptions: New oxycodone 5 mg tablet 5 mg PO Q4H PRN (Reason: pain) 3 Days Qty: 7 0RF No Action topiramate [Topamax] 50 mg tablet 75 mg PO BID Zyrtec 10 mg capsule 10 mg PO DAILY PRN (Reason: Allergy Symptoms) bupropion HCl [Wellbutrin XL] 300 mg tablet extended release 24 hr 300 mg PO QAM meloxicam [Mobic] 15 mg tablet 15 mg PO DAILY sumatriptan succinate [Imitrex] 25 mg tablet See Rx Instructions PO .COMPLEX PRN (Reason: Migraine Headache) Rx Instructions: take 1 tab at onset of headache; if no relief may repeat 1 tab after at least 2 hrs; max = 4 tabs/24 hr PO citalopram 20 MG tablet 20 mg PO DAILY nortriptyline 25 MG capsule 50 mg PO QHS Referrals / Follow Up: Alex Guerrero MD [Primary Care Provider] - Disposition Disposition (needs filled in before D/C Order can be placed): Home, Self Care
== END 2022-11-26 09:05 | disposition home or self-care (01) ==
LOC: SDC 05:57 → AC 05:57
PROVIDERS: PCP Family Medicine; Referring Provider Orthopaedic Surgery; Visit Provider Orthopaedic Surgery
PROC: (CPT 64721; principal; 2022-11-26 07:15)
DX: G56.03 Carpal tunnel syndrome, bilateral upper limbs (principal); Z79.1 Long term (current) use of non-steroidal anti-inflammatories (NSAID)
CPT/HCPCS: 64721; 01810; J7120; J2405

== ENCOUNTER → 2023-02-22 | Outpatient (CLI) | payer BC, SELFPAY ==
--- NOTE | 2023-02-22 08:45 | MRI_ITS ---
EXAM: MR LUMBAR SPINE WITHOUT INTRAVENOUS CONTRAST CLINICAL INDICATION: back pain lumbar TECHNIQUE: Multiplanar and multisequence MR images of the lumbar spine without intravenous contrast. Magnetic field strength 1.5 T. This report was created using [employer] report [employer] technology. COMPARISON: None. FINDINGS: VERTEBRAE: Unremarkable. Vertebral body heights are preserved. Normal vertebral bodies and posterior elements. Normal alignment. No spondylolisthesis. There is preservation of the normal lumbar lordosis. SPINAL CORD: Unremarkable. Normal position and signal intensity of the conus medullaris. SOFT TISSUES: Unremarkable. DISCS/SPINAL CANAL/NEURAL FORAMINA: L1-L2: Unremarkable. Normal disc height and morphology. Normal spinal canal and lateral recesses. Normal neuroforamina. L2-L3: Unremarkable. Normal disc height and morphology. Normal spinal canal and lateral recesses. Normal neuroforamina. L3-L4: Mild disc space narrowing. No spinal canal, foraminal, or lateral recess stenosis. L4-L5: L4-5: Large left paracentral disc protrusion. The protruded disc measures 0.8 x 1.5 x 1.0 cm and causes marked left lateral recess stenosis with compression of the left L5 nerve root. L5-S1: Unremarkable. Normal disc height and morphology. Normal spinal canal and lateral recesses. Normal neuroforamina. MRI/Spine Lumbar (Routine) IMPRESSION: Large L4-L5 left paracentral disc protrusion measuring 0.8 x 1.5 x 1.0 cm into the left lateral recess and causes marked left lateral recess stenosis and compression of the left L5 nerve root. Electronically Signed: Carlos Toth MD at 3:37 EDT ,
== END | disposition home or self-care (01) ==
PROVIDERS: PCP Family Medicine; Referring Provider Family Medicine; Visit Provider Family Medicine
DX: M54.50 Low back pain, unspecified (principal)
CPT/HCPCS: 72148

== ENCOUNTER → 2023-07-08 | Outpatient (CLI) | payer BC, SELFPAY ==
[2023-07-08 17:02] LABS: Anion Gap 5 (5-15); BUN 19 mg/dL (7-18); BUN/Creat Ratio 21.4 RATIO (10-20); Calcium,Total 8.6 mg/dL (8.5-10.1); Chloride 112 mmol/L (98-107); Creatinine, Serum 0.89 mg/dL (0.55-1.02); EST Glomerular Filtration Rate 74 mL/min (>60); Est Glom Filt Rate - Afr Amer 90 mL/min (>60); Glucose 93 mg/dL (74-106); Magnesium 2.3 mg/dL (1.6-2.6); Potassium 3.5 mmol/L (3.5-5.1); Sodium Level 141 mmol/L (136-145)
[2023-07-08 17:32] LABS: HIV - WCH Non-Reactive (Nonreactive)
[2023-07-08 17:41] LABS: Hepatitis B Surface Antibody Reactive; Hepatitis C Antibody Non-Reactive (Nonreactive)
[2023-07-10 08:13] LABS: Hepatitis A AB, Total Negative (Negative)
== END | disposition home or self-care (01) ==
LOC: LAB 15:32
PROVIDERS: Anesthesiology; PCP Family Medicine; Referring Provider Orthopaedic Surgery; Visit Provider Orthopaedic Surgery
DX: Z01.812 Encounter for preprocedural laboratory examination (principal)
CPT/HCPCS: 36415; 80048; 83735; 86703; 86706; 86708; 86803; 87081

== ENCOUNTER 2023-07-21 05:20 | Inpatient (IN) | payer BC, SELFPAY ==
--- NOTE | 2023-07-09 06:02 | EKG12_ITS ---
Test Reason : PRE OP Blood Pressure : / mmHG Vent. Rate : 064 BPM Atrial Rate : 064 BPM P-R Int : 146 ms QRS Dur : 096 ms QT Int : 408 ms P-R-T Axes : 042 037 017 degrees QTc Int : 420 ms Normal sinus rhythm with sinus arrhythmia Low voltage QRS Nonspecific T wave abnormality Abnormal ECG Confirmed by MIKE KIRBY ([id number]), order editor YUN HINTON ([id number]) on 07/14/2023 1:50:17 PM Referred By: OSWALD Confirmed By:MIKE KIRBY
[2023-07-17 17:11] LABS: Absolute Lymphocyte Count 1.88 X10^3/uL (0.83-4.51); Absolute Neutrophil Count 5.3 X10^3/uL (2.0-7.7); Basophil# 0.04 X10^3/uL; Basophil% 0.5 % (0-1); Eosinophils% 2.5 % (0-5); Hematocrit 40.6 % (37-47); Lymphocyte # 1.88 X10^3/ul (0.83-4.51); Lymphocyte % 23.5 % (19-41); Mean Corpuscular Hgb 29.7 pg (27.0-32.0); Mean Corpuscular Volume 92.9 fL (81-99); Mean Platelet Vol. 9.3 fl (6.2-12.0); Monocyte# 0.58 X10^3/uL; Monocyte% 7.3 % (0-10); NRBC Flagged by Analyzer 0 % (0-5); Neutrophil # 5.26 X10^3/uL (2.7-7.7); Neutrophil % 65.8 % (47-70); Platelet Count 338 K/mm3 (150-450); RBC Distribution Width CV 13.8 % (11.6-14.6); RBC Distribution Width SD 47.2 fl (35.1-43.9); Red Blood Count 4.37 M/mm3 (4.2-5.4)
[2023-07-17 18:32] LABS: HIV - WCH Non-Reactive (Nonreactive); Hepatitis B Surface Antibody Reactive; Hepatitis C Antibody Non-Reactive (Nonreactive)
[2023-07-19 08:10] LABS: Hepatitis A AB, Total Negative (Negative)
[2023-07-21] VITALS (17 sets, daily range): BP systolic 99–142; BP diastolic 59–85; PULSE 61–122; RESP 14–21; TEMP 36.1–36.9; O2SAT 16–100; BMI 45.6; BMI 49.1
[2023-07-21] MEDS: Lactated Ringers 1,000 ML 15 ML IV (06:29)
[2023-07-21] MEDS: Magnesium 1 GM over 15 mins IV (06:29)
[2023-07-21] MEDS: Acetaminophen 500 MG Tablet 1000 MG PO ×2 (06:37→19:40)
[2023-07-21 07:04] LABS: Bedside Glucose 93 mg/dL (74-106)
--- NOTE | 2023-07-21 07:30 | DISC_PTH ---
PATIENT: MARQUIS BRAVO LOC: [facility] U#:[id number] AGE/SX: 42/F ROOM: [facility]314 RE07/21/[address]: Dr. Benjamin Kirk DO : 1980 BED: 1 DIS: 07/24/2023 SPEC #: [id number] RECD: 07/21/23 16:53 STATUS: ANGELICA REQ #: [id number] LONG: 07/21/23 07:[address]: Benjamin Kirk DEPT: SURGICAL PATHOLOGY RECD BY: Shelia Crowley ENTERED: 07/22/23 07:39 SP TYPE: DISC OTHR DR: MD Dr. Aguilar Ramos, DO MD Dr. Lizz Streeter MD Dr. Autumn L White, MD Dr. Mary Catherine Sementi, DO MD Louis Jeffery MD Dr. Eric Jopperi, DO MD Dr. Reggie Barker MD Dr. James Mooney, MD Dr. Jonathan Vogt, DO Dr. Mary Richmond, DO Dr. Lambert Deluca, DO MD Dr. Jignesh Somers MD Dr. Paul Nielsen, MD Dr. Paige Pierce, MD Dr. Ryan Burkholder, MD Jessica Franklin, NP-C John P Duarte, PA Tissues: Intervertebral disc, NOS Procedures: Surgery Specimen Level III HEADER OPERATION: ERAS, 360 lumbar fusion L4-L5 with laminectomy L4-L5 on left PRE-OP DIAGNOSIS: Herniation of intervertebral disc between L4 and L5 TISSUE SUBMITTED: L4-L5 disc MICROSCOPIC DIAGNOSIS L4-L5 disc, laminectomy: Fragments of fibrocartilaginous tissue with degenerative changes. Colton 07/23/2023 MICROSCOPIC DESCRIPTION Slides are reviewed. GROSS DESCRIPTION Received in fixative is one container labeled with the patient's name and designated L4-L5 disc. The specimen consists of multiple irregular fragments of haddad, indurated tissue that in aggregate measure 6.5 x 6.0 x 2.0 cm. The largest piece measures 3.5 cm in greatest dimension. Toilet Attendant sections are submitted in one cassette. / Colton 07/22/2023 TC:5 CPT: 27488
[2023-07-21] MEDS: Cefazolin 2 GM in 0.9% Normal Saline 100 ML IV (08:00)
[2023-07-21] MEDS: Heparin 10,000 UNITS/10 ML Vial 10000 UNITS (09:14)
--- NOTE | 2023-07-21 09:55 | RAD_ITS ---
STUDY: X-RAY - LUMBAR SPINE REASON FOR EXAM: Female, 42 years old. Intraoperative fusion TECHNIQUE: Single limited lateral view(s) of the lumbar spine were obtained. COMPARISON: None FINDINGS: Single limited crosstable lateral view of the lumbar spine was performed intraoperatively. Surgical instrumentation is noted anteriorly between L4 and L5. RAD/Spine 1 View Any Level IMPRESSION: Intraoperative study shows age consistent degenerative changes with surgical instrumentation anterior to L4-5 Electronically Signed: Chacho Jenkins MD at 10:11 EDT ,
--- NOTE | 2023-07-21 10:03 | RAD_ITS ---
STUDY: X-RAY - LUMBAR SPINE REASON FOR EXAM: Female, 42 years old. Intraoperative fusion TECHNIQUE: Single limited cross table lateral view(s) of the lumbar spine were obtained. COMPARISON: None FINDINGS: Single limited crosstable lateral view of the lumbar spine performed after the patient has undergone anterior fusion between L4 and L5 with placement of a synthetic disc at L4-5. No intraoperative complications noted. RAD/Spine 1 View Any Level IMPRESSION: No intraoperative complications noted after anterior fusion between L4 and L5 with placement of a synthetic disc at L4-5. Electronically Signed: Chacho Jenkins MD at 11:30 EDT ,
--- NOTE | 2023-07-21 11:30 | PCM.OPRPT ---
Report of Operation Description of Surgical Findings:: Preoperative diagnosis: Herniated disc L4-5 Postoperative diagnosis: The same Procedures: #1 anterior lumbar interbody fusion L4-5 CPT code 52725 #2 internal fixation with anterior spine plate L4-5 CPT code 20609/59 #3 insertion of titanium cage L4-5 CPT code 51700 #4 bone marrow aspirate iliac crest CPT code 15158 #5 bone allograft L4-5 CPT code 83880 Co-surgeons: Dr. Kirk and Dr. Vyas household assistant: Demi ALMEIDA Anesthesia: General endotracheal by [facility] EBL: Less than 100 cc Drains: Described in Dr. Vyas's operative summary Complications: None Procedure: Patient was taken to the OR where she was placed in supine position on the operating table. She was placed under general endotracheal anesthesia. Neuro monitoring placed her leads on the patient. A Parker catheter was inserted. The abdomen was then prepped and draped in standard fashion. The surgical approach as described in Dr. Vyas's operative summary. She had L4-5 exposed an intraoperative x-ray was taken with a marker in place that proved that we were indeed at L4-5. Note that the exposure was excellent. And then used a 10 blade on a very long handle to cut the anterior annulus. This was removed with pituitary rongeurs. I then removed more nucleus from within the disc space with pituitary rongeurs. Following this I used a ring curette to remove cartilage off both endplates. Note that the hole in the posterior longitudinal ligament was found using pituitary I was able to actually remove a significant portion of the extruded disc. Using a anthony bur I then had to bur the sides and the back to make room for the cage. This was a 6 mm anthony bur and we used cool saline to cool it in between burring. Then used a first a 12 mm trial but then ended up using a 14 mm small trial which fit perfectly. I then used a broach to broach the space repeatedly until we had good bleeding bone on the endplates. The 14 mm small cage was then filled with spongy allograft. Following this it was then soaked in the patient's own stem cells. Note that these were obtained before the case even started through a Jamshidi needle 60 cc were obtained this was then handed off to the metallographic technician we spun down the stem cells them from all the other cells concentrated them 10 times and gave them back to us. The spongy allograft bone and the cage was then soaked in the patient's own concentrated stem cells. Thus was then tamped into place and countersunk a couple of millimeters. It was found to be an excellent fit. I then used a 27 mm plate note that I did have to bend the plate slightly to make for a better fit. Once this was done I then centered it and Dr. Vyas was instrumental in this part where I held the plate while he used a all to [place] each of the 4 holes 2 into L4 and 2 and L5 each tamp was followed by the insertion of a 30 mm screw. We then activated the locking mechanisms on the plate. An intraoperative x-ray was taken the demonstrated excellent position of the plate the screws and the cage. An amnion membrane patch was then placed over the plate to prevent adhesions to the surrounding vessels and the left iliac vessel coming across the plate. The closure was then described in Dr. Vyas's operative summary. This is the end of operative summary on Sofie Odell. This is Dr. Kirk dictating.
[2023-07-21] MEDS: THROMBIN (RECOMBINANT) 20,000 UNIT VIAL 20000 UNIT TOPICAL (12:58)
--- NOTE | 2023-07-21 13:10 | RAD_ITS ---
STUDY: X-RAY - LUMBAR SPINE REASON FOR EXAM: Female, 42 years old. 360 FUSION L4-5 TECHNIQUE: 1 view(s) of the lumbar spine were obtained. COMPARISON: Comparison is made with prior study done earlier today. FINDINGS: The patient is status post anterior fusion at the L4-L5 level with screw and plate fixation device. Prosthetic disc is present. RAD/Spine 1 View Any Level IMPRESSION: Status post anterior fusion at the L4-L5 level with prosthetic disc placement. Electronically Signed: Deric Christine MD at 14:01 EDT ,
--- NOTE | 2023-07-21 14:30 | RAD_ITS ---
STUDY: X-RAY - LUMBAR SPINE REASON FOR EXAM: Female, 42 years old. 360 FUSION L4-5 TECHNIQUE: Single lateral view of the lumbar spine were obtained. COMPARISON: None FINDINGS: Normal lumbar lordosis. There is no substantial scoliosis. There is a normal alignment of the vertebrae. Normal vertebral bodies and endplates. Anterior surgical fusion at L4-5 level with disc spacer in place. Normal disc space heights. The soft tissue structures are unremarkable. RAD/Spine 1 View Any Level IMPRESSION: Anterior surgical fusion at L4-5 level with disc spacer in place. Electronically Signed: Ranjith Callahan DO at 17:15 EDT ,
--- NOTE | 2023-07-21 15:01 | PCM.OPRPT ---
Report of Operation Description of Surgical Findings:: Operative diagnosis: Herniated disc L4-5 Postoperative diagnosis: The same Procedures: #1 posterior fusion L4-5 CPT code 31382 #2 lumbar laminectomy L4-5 left CPT code 82022 #3 internal fixation L4-5 CPT code 29555 #4 allograft bone SPARC CPT code 10258 Surgeon: Dr. Kirk Check Cashier: Demi ALMEIDA Anesthesia: General endotracheal by [facility] EBL: Less than 100 cc Drains: None Complications: None Procedure: When the anterior surgery was completely done the abdomen was closed and dressed the patient was then moved onto a Stu frame in the prone position for the second surgery. Once positioned well with her breasts protected her bony prominences protected and her ulnar nerves of both elbows and brachial plexus and cervical spine were protected the back was prepped and draped standard fashion I then made a longitudinal incision centered centered over the area thought to be L4-5. Subcutaneous tissues were incised length of skin incision. Then opened the lumbar fascia to the left of the spinous processes and elevated the paravertebral muscles off to lamina thought to be L4-5 but turned out it was really L5-S1 so we merely marked the level above took another x-ray and confirmed that it was L4-5 then elevated the paravertebral muscles off the lamina of 4 and the lamina 5 and exposed spinous processes. We did this under muscle relaxation we also opened the other side exactly the same way elevated. Paravertebral muscles on the right off the lamina for the lamina 5. The super slide retractors were then put in place. Then used double-action rongeurs to thin the lamina of L4 and used curettes to elevate the ligamentum flavum off the underside of the L4 lamina of the 45 degree Kerrisons were then used to perform the laminectomy at 4 5 on the left. Also removed all the ligamentum flavum lateralward and performed partial medial facetectomy. This completely decompressed the L5 nerve we did move it medialward and held it with a nerve root retractor. I then opened the bulging disc note that we got most of the disc out from the front and once I opened the annulus I removed a piece of annulus blood could be seen coming from the disc space which also I was able to identify the cage. This completely decompressed any remaining pressure on the L5 nerve root. We packed it with Gelfoam left in thrombin once we had excellent hemostasis we prepared the area for the fusion. Using a anthony bur I then burred the lamina of 5 and lamina 4 on both sides. The interspinous ligament was removed between L4 and L5. The endograft was then put in place after first putting SPARC over the lamina on both sides. The endograft was then placed over this. Sternal fixation device was then applied put in place sunk all the way down to the endograft. The locking mechanisms were then at activated. We then took an intraoperative x-ray demonstrated excellent position of all the hardware front and back. Note that we did not have much bleeding but at this point in time and we decided not to put a drain in. We closed the lumbar fascia using [id number] suture with #1 Vicryl. Followed by closure of subcutaneous tissues with 0 Vicryl and 2-0 Vicryl in layers as the lady was rather large once that was closed the skin was approximated using skin clips. Sterile dressings were then applied. The patient was then recovered in the OR she was moved to her hospital bed and taken to recovery in satisfactory condition. Is the end of operative summary on Sofie Odell. This is Dr. Kirk dictating.
--- NOTE | 2023-07-21 15:34 | OP.PCM_ITS ---
Report of Operation Date of Procedure: 07/21/23 Pre-Operative Diagnosis: herniated disc L4-L5 Post-Operative Diagnosis: same Surgery/Procedure Performed:: #1 anterior lumbar interbody fusion L4-5 CPT code 59647 #2 internal fixation with anterior spine plate L4-5 CPT code 11599/59 #3 insertion of titanium cage L4-5 CPT code 58955 Surgeon: Co-Surgeons: Dr. Kirk, Dr. Vyas Type of Anesthesia: General Description of Procedure: HPI: Patient is a 42-year-old female with L4-5 disc herniation was evaluated by Dr. Kirk and found to be appropriate for anterior discectomy fusion as well as laminectomy. Vascular surgery is requested to perform exposure and mobilization of the abdominal great vessels to facilitate the anterior aspect of the pr ocedure. Description of procedure: Upon obtaining informed consent and verification correct patient procedure site patient was taken to the operating room she was placed under general anesthesia. She was then positioned prepped and draped in usual sterile fashion a timeout was performed. Transverse incision was made in the left lower quadrant and Bovie electrocautery used to dissect down through subcutaneous tissue. Self-retaining retractors then put in position and further dissection carried down to level the fascia. The fascia was incised transversely with counterincisions made inferior medially and superior laterally after which the rectus muscle was mobilized circumferentially with care taken to elevate the epigastric vessels with the muscle. The rectus muscle was then retracted medially and blunt dissection used to develop a plane between the posterior aspect of the abdominal wall and the peritoneum. Once the peritoneum it contained structures were mobilized medially the posterior sheath was incised vertically facilitating further dissection towards the midline. A lap sponge was then placed to maintain a position and the rectus muscle retracted laterally after which the Omni retractor was brought in the field and put into position. The left iliac vein was mobilized along its lateral edge and side branches ligated with silk ties and divided. Next the left iliac artery was dissected free from the connective tissue allowing it to be retracted medially exposing the midline and the anterior surface of the vertebral bodies. Further blunt dissection was utilized to further mobilize the left iliac vessels and the aorta until satisfactory exposure of the L4-L5 disc space was obtained. After we had satisfactory exposure Dr. Kirk scrubbed in and performed the discectomy and fusion which she will dictate in further detail. After completion of the fusion the vessels were inspected for hemostasis and allowed to return to the [place] position. Retractors were then removed along the abdominal contents to return to their [place] position with satisfactory stasis noted. The rectus muscle was then returned toward midline and the fascia closed with PDS strata fix suture in a running fashion. The superficial incision was then irrigated and closed with 2-0 Vicryl, 3-0 Vicryl, 4 Monocryl and Dermabond for the skin. Given the depth of the subcutaneous space a Prevena wound VAC was placed to help decrease wound complications and seroma formation. After the dressing was applied the patient was then flipped and Dr. Kirk proceeded with the posterior instrumentation.
[2023-07-21] MEDS: Lactated Ringers 1,000 ML 100 ML IV (16:50)
[2023-07-21] MEDS: Cefazolin 1 GM/50 ML BAG IV (18:51)
[2023-07-21] MEDS: Topiramate 25 MG Tablet 75 MG PO (21:25)
[2023-07-21] MEDS: oxyCODONE 5 MG Tablet PO (23:23)
[2023-07-22] VITALS (7 sets, daily range): BP systolic 95–124; BP diastolic 49–64; PULSE 86–97; RESP 16–18; TEMP 36.6–37.2; O2SAT 96–99
--- NOTE | 2023-07-22 00:16 | PN.HOSP_ITS ---
Reason for Visit Reason for Visit: Diagnoses Encounter for other preprocedural examination (07/21/23) Subjective Subjective Patient is a 42-year-old female with a significant history of morbid obesity; DVT; chronic migraines alcoholic; depression/anxiety who is postop day 1 for L4- L5 spinal fusion. Internal medicine service has been consulted for medical management of her chronic medical conditions which includes above. Patient reports of appropriate postoperative pain at her back. Her pain is relieved with staying away from her back. She denies any other symptoms. Objective Data Objective Data Vital Signs: Vital Signs Temp Pulse Resp BP Pulse Ox O2 Del Method O2 Flow Rate 98 F 83 16 126/62 H 84 Room Air 2 07/21/23 23:15 07/21/23 23:15 07/21/23 23:15 07/21/23 23:15 07/21/23 23:15 07/21/23 23:15 07/21/23 18:00 Oxygen Flow Rate (L/min) 2 Oxygen Delivery Method Room Air Weight: 122.016 kg Body Mass Index (BMI) 49.1 Intake & Output: Intake and Output for Last 24 Hours 07/20/23 07/21/23 07/22/23 23:59 23:59 23:59 Intake Total 1262.00 / 1262.00 Output Total 1510 / 1510 Balance -248.00 / -248.00 Lab / Micro Data 07/17/23 16:16 Labs: Laboratory Results - last 24 hr 07/21/23 06:10: POC Glucose 93 Radiography Diagnostic Testing: Radiology Impression Spine X-Ray 07/21/23 09:55 IMPRESSION: Intraoperative study shows age consistent degenerative changes with surgical instrumentation anterior to L4-5 Electronically Signed: Chacho Jenkins MD at 10:11 EDT , Spine X-Ray 07/21/23 10:03 IMPRESSION: No intraoperative complications noted after anterior fusion between L4 and L5 with placement of a synthetic disc at L4-5. Electronically Signed: Chacho Jenkins MD at 11:30 EDT , Spine X-Ray 07/21/23 13:10 IMPRESSION: Status post anterior fusion at the L4-L5 level with prosthetic disc placement. Electronically Signed: Deric Christine MD at 14:01 EDT , Spine X-Ray 07/21/23 14:30 IMPRESSION: Anterior surgical fusion at L4-5 level with disc spacer in place. Electronically Signed: Ranjith Callahan DO at 17:15 EDT , Physical Exam Narrative Physical exam: General: Morbidly obese Head: Normocephalic, atraumatic, no tenderness Eyes: Vision is grossly intact. EOMI ENT, no trauma, moist mucous membranes, no rhinorrhea Neck: Nontender, No thyromegaly. CVS: Regular rate and rhythm. S1-S2 present. No murmur, gallop or rub. Respiratory : clear to auscultation bilaterally, chest wall nontender Abdomen: Soft, nontender, nondistended, normal bowel sounds, no masses : Deferred Back: Dressing at abdomen and back. Wound VAC emanating from abdomen. Extremities: Nontender full range of motion, no trauma Skin: Normal color, no trauma, abrasions Neuro: Alert, oriented, cranial nerves II through XII grossly intact. Psychiatry: Normal mood. Normal affect. Not depressed. Not anxious. Assessment & Plan Assessment/Plan (1) Herniation of intervertebral disc between L4 and L5: (2) Morbid obesity with BMI of 45.0-49.9, adult: PLAN: Plan Herniated Disc L4-L5 spinal fusion Agrees with pain control. Management by primary. Depression, anxiety, migraine Bupropion, citalopram, Pamelor, topiramate and sumatriptan continued History of DVT Report it was related to her contraceptives. Not on any anticoagulations. Stable. Morbid Obesity: BMI: 49.2 kg/m?. Complicates care. Lifestyle modification recommended. DVT prophylaxis: NATASHA castellon and SCDs in place. Time spent in the patient's overall evaluation,decision-making process, review of diagnostic data, adjustment of management, discussion with other providers, nursing nursing and ancillary staff involved in patient's care documentation, 30 minutes. Charges/Coding Visit Charges Inpatient E&M: 63378 Subs Hosp L2
[2023-07-22] MEDS: Nortriptyline 25 MG Capsule 50 MG PO ×2 (01:25→22:04)
[2023-07-22] MEDS: Cefazolin 1 GM/50 ML BAG IV (03:29)
[2023-07-22] MEDS: Acetaminophen 500 MG Tablet 1000 MG PO ×3 (05:39→21:21)
[2023-07-22] MEDS: oxyCODONE 5 MG Tablet PO ×2 (05:44→12:31)
[2023-07-22] MEDS: Morphine 4 MG/ML Syringe IV (06:47)
[2023-07-22] MEDS: buPROPion (XL) 300 MG TABLET.XL PO (09:03)
[2023-07-22] MEDS: Topiramate 25 MG Tablet 75 MG PO ×2 (09:03→21:22)
[2023-07-22] MEDS: Citalopram 20 MG Tablet PO (09:03)
--- NOTE | 2023-07-22 11:13 | PN_ITS ---
Subjective Subjective Patient seen and examined. She had no complaints. Pain is well. She is postop day 1 for L4-5 anterior lumbar interbody fusion. Objective Data Objective Data Vital Signs: Vital Signs Temp Pulse Resp BP Pulse Ox O2 Del Method O2 Flow Rate 98.4 F 86 18 95/49 L 96 Room Air 2 07/22/23 08:55 07/22/23 08:55 07/22/23 08:55 07/22/23 08:55 07/22/23 08:55 07/22/23 08:55 07/21/23 18:00 Oxygen Flow Rate (L/min) 2 Oxygen Delivery Method Room Air Weight: 269 lb Body Mass Index (BMI) 49.1 Intake & Output: Intake and Output for Last 24 Hours 07/20/23 07/21/23 07/22/23 23:59 23:59 23:59 Intake Total 1262.00 / 1462.00 1500 / 1500 Output Total 1510 / 1860 1500 / 1500 Balance -248.00 / -398.00 0 / 0 Lab / Micro Data 07/17/23 16:16 Radiography Diagnostic Testing: Radiology Impression Spine X-Ray 07/21/23 10:03 IMPRESSION: No intraoperative complications noted after anterior fusion between L4 and L5 with placement of a synthetic disc at L4-5. Electronically Signed: Chacho Jenkins MD at 11:30 EDT , Spine X-Ray 07/21/23 13:10 IMPRESSION: Status post anterior fusion at the L4-L5 level with prosthetic disc placement. Electronically Signed: Deric Christine MD at 14:01 EDT , Spine X-Ray 07/21/23 14:30 IMPRESSION: Anterior surgical fusion at L4-5 level with disc spacer in place. Electronically Signed: Ranjith Callahan DO at 17:15 EDT , Physical Exam Const alert, oriented x3 and no apparent distress General Appearance: cooperative HEENT normocephalic, head/scalp atraumatic, moist oral mucous membranes and oropharynx normal Eyes PERRL and EOMs intact bilaterally Lymph Lymphatic: no lymphadenopathy noted and no lymphedema noted Resp normal respiratory effort, normal air movement and clear to auscultation bilaterally Cardio regular rate, regular rhythm, S1 normal heart sound, S2 normal heart sound and no murmurs GI normal to inspection, nondistended, normoactive bowel sounds, soft to palpation, non-tender and non-distended GI Narrative: intact dressing over lower abdomen Extremity normal capillary refill, no clubbing, cyanosis or edema and no calf tenderness Skin General Skin Exam: no breakdown and turgor normal Neuro CN's II-XII intact bilaterally, no focal motor deficits, no sensory deficits noted and deep tendon reflexes 2+ bilaterally Motor Exam: strength 5/5 throughout Psych thought process normal, cooperative and affect normal Appearance: appropriate Assessment & Plan Assessment/Plan (1) Herniation of intervertebral disc between L4 and L5: PLAN: Plan #Herniation of L4-5 * s/p spinal fusion of L4-5 * management as per primary service spine surgery * PT/OT on board. * fall precautions * #History of DVT: it was apparently related to her being on oral contraceptives. Not on any anticoagulants currently. stable #Depression and anxiety: on buproprion and citalopram #History of migraines: On topiramate and sumatriptan #Super morbid obesity: BMI is 49.2. Complicates acute care, expected recovery and prognosis DVT prophylaxis: as per primary team. Staci and NATASHA butler Charges/Coding Visit Charges Inpatient E&M: 55240 Subs Hosp L2
--- NOTE | 2023-07-22 11:21 | PCM.PN.ORT ---
Subjective Subjective Sofie is seen on rounds. This is postop day #1. Her only complaint is that her back is sore as expected more so than her abdomen. She is already walked down the [place] with a walker and did fine. Has not passed any gas yet. She has no bowel sounds yet. Neuro is completely intact in both lower extremities. Her dressings are both dry. Progress is quite satisfactory at this point. I told her it would probably be 2 more days before she can go home. I will see her again tomorrow around noon or 1:00. Objective Data Objective Data Vital Signs: Vital Signs Temp Pulse Resp BP Pulse Ox O2 Del Method O2 Flow Rate 98.4 F 86 18 95/49 L 96 Room Air 2 07/22/23 08:55 07/22/23 08:55 07/22/23 08:55 07/22/23 08:55 07/22/23 08:55 07/22/23 08:55 07/21/23 18:00 Oxygen Flow Rate (L/min) 2 Oxygen Delivery Method Room Air Weight: 269 lb Body Mass Index (BMI) 49.1 Intake & Output: Intake and Output for Last 24 Hours 07/20/23 07/21/23 07/22/23 23:59 23:59 23:59 Intake Total 1262.00 / 1462.00 1500 / 1500 Output Total 1510 / 1860 1500 / 1500 Balance -248.00 / -398.00 0 / 0 Lab / Micro Data 07/17/23 16:16 Radiography Diagnostic Testing: Radiology Impression Spine X-Ray 07/21/23 10:03 IMPRESSION: No intraoperative complications noted after anterior fusion between L4 and L5 with placement of a synthetic disc at L4-5. Electronically Signed: Chacho Jenkins MD at 11:30 EDT , Spine X-Ray 07/21/23 13:10 IMPRESSION: Status post anterior fusion at the L4-L5 level with prosthetic disc placement. Electronically Signed: Deric Christine MD at 14:01 EDT , Spine X-Ray 07/21/23 14:30 IMPRESSION: Anterior surgical fusion at L4-5 level with disc spacer in place. Electronically Signed: Ranjith Callahan DO at 17:15 EDT Reading Location ID and State: [facility] / [place] Tel [phone], Service support ,
--- NOTE | 2023-07-22 14:07 | CASEMGMT ---
JULIO MELVIN Assessment: Face to Face with pt for initial transition planning/care coordination assessment. RN OLEGARIO introduced self and role at [facility], pt voices understanding and consents to assessment. Pt is A/O x4 and answers all questions appropriately at this time. Care providers, pharmacy, and demographics verified/updated. Admitting Dx: 360 lumbar fusion PCP:Yolanda Specialists:oren Kirk; oren Whitney Preferred Pharmacy: [facility] Insurance: [place] Prescription Benefit: yes LNOK: Seth Odell, Living Arrangements: Pt lives with and son in a single story home with 2 steps to enter without a rail. Pt reports she was I in ADL's prior to surgery. Pt denies concerns at home. Transportation: Pt drives self and denies concerns with transportation. Pt will transport pt post surgery. DME/HHC/SNF: Pt does not have any DME in the home, denies hx of HHC or SNF stays. Pt states no concerns with going home at time of dc. Pt is unsure if she will need a FWW at dc. Pt denies preference of DME company if she should need this. Pt states no further concerns/needs. CM to follow. Advised pt to ask CM if any further question/concerns/needs arise, voices understanding. Pt Goal: Home Plan: Home, follow for walker
[2023-07-22] MEDS: Juven (unflavored) Packet 1 PACKET PO (17:03)
[2023-07-22] MEDS: Ensure Surgery 237 ML LIQUID PO (17:03)
[2023-07-22] MEDS: 0.9% Saline Lock 10 ML Syringe IV (21:23)
--- NOTE | 2023-07-22 22:05 | NURSING ---
dressing had rolled up. cleaned surgical wound with normal saline. replaced dressing. supervisor [employer] was unable to obtain the same dressing size that the pt had, so applied a larger size. paged dr reyes to inform him that dressing was changed, but he has not returned call at this time.
[2023-07-23 01:42] VITALS: BP 114/65; PULSE 94; RESP 16; TEMP 37.1; O2SAT 94
[2023-07-23 06:23] VITALS: BP 123/70; PULSE 95; RESP 14; TEMP 37.1; O2SAT 95
[2023-07-23] MEDS: Acetaminophen 500 MG Tablet 1000 MG PO ×3 (06:32→21:40)
[2023-07-23] MEDS: oxyCODONE 5 MG Tablet PO ×2 (06:33→16:53)
[2023-07-23 07:45] VITALS: O2SAT 95
[2023-07-23] MEDS: Juven (unflavored) Packet 1 PACKET PO ×2 (08:25→16:48)
[2023-07-23] MEDS: Topiramate 25 MG Tablet 75 MG PO ×2 (08:25→21:41)
[2023-07-23] MEDS: buPROPion (XL) 300 MG TABLET.XL PO (08:26)
[2023-07-23] MEDS: Citalopram 20 MG Tablet PO (08:26)
[2023-07-23 08:45] VITALS: BP 100/61; PULSE 96; RESP 18; TEMP 36.8; O2SAT 99
--- NOTE | 2023-07-23 10:56 | PN_ITS ---
Subjective Subjective Patient seen and examined. She has no active complaints. She said her pain is tolerable, and rates it at 5/10. Review of systems is otherwise negative. Objective Data Objective Data Vital Signs: Vital Signs Temp Pulse Resp BP Pulse Ox O2 Del Method O2 Flow Rate 98.2 F 96 18 100/61 99 Room Air 2 07/23/23 08:45 07/23/23 08:45 07/23/23 08:45 07/23/23 08:45 07/23/23 08:45 07/23/23 08:49 07/21/23 18:00 Oxygen Flow Rate (L/min) 2 Oxygen Delivery Method Room Air Weight: 268 lb 15.988 oz Body Mass Index (BMI) 49.1 Intake & Output: Intake and Output for Last 24 Hours 07/21/23 07/22/23 07/23/23 23:59 23:59 23:59 Intake Total 1262.00 / 1462.00 1740 / 1740 Output Total 1510 / 1860 4400 / 4400 1400 / 1400 Balance -248.00 / -398.00 -2660 / -2660 -1400 / -1400 Lab / Micro Data 07/17/23 16:16 Physical Exam Const alert, oriented x3 and no apparent distress General Appearance: cooperative HEENT normocephalic, head/scalp atraumatic, moist oral mucous membranes and oropharynx normal Eyes PERRL and EOMs intact bilaterally Neck no lymphadenopathy and supple Lymph Lymphatic: no lymphadenopathy noted and no lymphedema noted Resp normal respiratory effort, normal air movement and clear to auscultation bilaterally Cardio regular rate, regular rhythm, S1 normal heart sound, S2 normal heart sound and no murmurs GI normal to inspection, nondistended, normoactive bowel sounds, soft to palpation, non-tender and non-distended GI Narrative: intact dressing over lower abdomen, at surgical site Extremity normal capillary refill, no clubbing, cyanosis or edema and no calf tenderness Skin General Skin Exam: no breakdown and turgor normal Neuro CN's II-XII intact bilaterally, no focal motor deficits, no sensory deficits noted and deep tendon reflexes 2+ bilaterally Motor Exam: strength 5/5 throughout Psych thought process normal, cooperative and affect normal Appearance: appropriate Assessment & Plan Assessment/Plan (1) Herniation of intervertebral disc between L4 and L5: PLAN: Plan #Herniation of L4-5 * s/p spinal fusion of L4-5 * management as per primary service spine surgery * PT/OT on board. * fall precautions * #History of DVT: it was apparently related to her being on oral contraceptives. Not on any anticoagulants currently. stable #Depression and anxiety: on buproprion and citalopram #History of migraines: On topiramate and sumatriptan #Super morbid obesity: BMI is 49.2. Complicates acute care, expected recovery and prognosis DVT prophylaxis: as per primary team. Staci and NATASHA butler Disposition: as per primary team Charges/Coding Visit Charges Inpatient E&M: 45038 Subs Hosp L2
--- NOTE | 2023-07-23 13:21 | PCM.PN.ORT ---
Subjective Subjective Postop day #2. Patient is seen on rounds and she is doing quite well. She states that her left leg pain is completely resolved. Neurologically she is intact in both lower extremities. Her dressing is dry. It what had to be changed last night however because it rolled up. She has bowel sounds now and is passing gas. When had started her on a transitional diet. She should be ready to go home tomorrow. Objective Data Objective Data Vital Signs: Vital Signs Temp Pulse Resp BP Pulse Ox O2 Del Method O2 Flow Rate 98.2 F 96 18 100/61 99 Room Air 2 07/23/23 08:45 07/23/23 08:45 07/23/23 08:45 07/23/23 08:45 07/23/23 08:45 07/23/23 08:49 07/21/23 18:00 Oxygen Flow Rate (L/min) 2 Oxygen Delivery Method Room Air Weight: 268 lb 15.988 oz Body Mass Index (BMI) 49.1 Intake & Output: Intake and Output for Last 24 Hours 07/21/23 07/22/23 07/23/23 23:59 23:59 23:59 Intake Total 1262.00 / 1462.00 1740 / 1740 Output Total 1510 / 1860 4400 / 4400 1400 / 1400 Balance -248.00 / -398.00 -2660 / -2660 -1400 / -1400 Lab / Micro Data 07/17/23 16:16
[2023-07-23 14:00] VITALS: BP 107/61; PULSE 98; RESP 18; TEMP 36.4; O2SAT 100
[2023-07-23 19:44] VITALS: BP 124/64; PULSE 81; RESP 16; TEMP 36.6; O2SAT 98
[2023-07-23] MEDS: Nortriptyline 25 MG Capsule 50 MG PO (21:57)
[2023-07-24] MEDS: 0.9% Saline Lock 10 ML Syringe IV (03:21)
[2023-07-24 03:33] VITALS: BP 119/69; PULSE 79; RESP 16; TEMP 36.6; O2SAT 97
[2023-07-24] MEDS: Acetaminophen 500 MG Tablet 1000 MG PO ×2 (05:16→13:32)
[2023-07-24] MEDS: Topiramate 25 MG Tablet 75 MG PO (07:30)
[2023-07-24] MEDS: Juven (unflavored) Packet 1 PACKET PO (07:30)
[2023-07-24] MEDS: buPROPion (XL) 300 MG TABLET.XL PO (07:30)
[2023-07-24] MEDS: Citalopram 20 MG Tablet PO (07:31)
[2023-07-24] MEDS: Ensure Surgery 237 ML LIQUID PO (07:34)
[2023-07-24 08:00] VITALS: O2SAT 95
[2023-07-24 08:52] VITALS: BP 97/61; PULSE 81; RESP 16; TEMP 37.2; O2SAT 96
[2023-07-24] MEDS: oxyCODONE 5 MG Tablet PO (11:32)
[2023-07-24 11:45] VITALS: BP 112/75; PULSE 88; RESP 16; TEMP 37.3; O2SAT 98
--- NOTE | 2023-07-24 12:54 | DCINST_ITS ---
Discharge Instructions Activity May shower in (days): 3 May resume sexual activity in: 4-6 weeks Lifting Restrictions: 15# Dressing / Incision Remove Dressing in: 2 days Follow Up Care Test Results: Test results from this visit will be discussed in further detail at your follow- up appointment, if applicable. Discharge Plan Admission Admit Date/Time: 07/21/23 05:20 Primary Reason for Your Visit: lumbar fusion Attending Provider: Benjamin Kirk Primary Care Provider: Alex Guerrero Consulting Providers: Joelle Pollack; Aguilar Pope; Lizz Dunlap; Lizz Danielson; Liza Preston; Lawanda Vega; Nikko Cedillo; Louis Sawant; Jeff Busch; Nydia Read; Reggie Padilla; Josue Sexton; Paul Sebastian; Mary Richmond; Lambert Deluca; Rain Mukherjee; Jignesh Wright; Alex Guerrero; Makenna Ruvalcaba; Pedro Luna; Sofie Velazquez NP; Pedro Barrera Discharge Orders/Prescriptions Prescriptions: No Action topiramate [Topamax] 50 mg tablet 75 mg PO BID Zyrtec 10 mg capsule 10 mg PO DAILY PRN (Reason: Allergy Symptoms) bupropion HCl [Wellbutrin XL] 300 mg tablet extended release 24 hr 300 mg PO QAM meloxicam [Mobic] 15 mg tablet 15 mg PO QHS sumatriptan succinate [Imitrex] 25 mg tablet See Rx Instructions PO .COMPLEX PRN (Reason: Migraine Headache) Rx Instructions: take 1 tab at onset of headache; if no relief may repeat 1 tab after at least 2 hrs; max = 4 tabs/24 hr PO multivitamin Tablet 1 tab PO DAILY ferrous sulfate [Feosol] 325 mg (65 mg iron) tablet 325 mg PO DAILY citalopram 20 MG tablet 20 mg PO DAILY nortriptyline 25 MG capsule 50 mg PO QHS Other Ambulatory Orders: 12 Lead EKG (Routine) Timeframe: 20230708 Location: None Selected Ordered By: Dr. Steve Fajardo Referrals / Follow Up: Alex Guerrero MD [Primary Care Provider] - Disposition Disposition (needs filled in before D/C Order can be placed): Home, Self Care
--- NOTE | 2023-07-24 12:57 | DS.PCM_ITS ---
Providers Date of Admission: 07/21/23 Primary Care Physician: Dr. Alex Guerrero MD Attending Physician: This is discharge summary on Sofie Odell. This patient was admitted on Friday the . She underwent 360 degree fusion at the L4-5 level. She also had a laminectomy at L4-5 on the left side. She tolerated the procedures well. Yesterday she started having good bowel sounds and we started advancing her diet. Her dressings are both dry. Neurologically she is intact in both lower extremities. She reports that her left leg pain is completely gone. Her pain is quite tolerable with simply oxycodone. She was given a post fusion protocol regarding her activities over the next several days and weeks. She already has an appointment to see me in the office. We will remove the clips at that time. She has been told when she can remove the dressing and when she can shower. She has good bowel sounds today and is ambulating quite well with her walker. This is the end of discharge summary on Sofie Odell. This is Dr. Kirk dictating. Consultations 07/21/23 15:46 Consult: Hospitalist Routine Consulting Provider: [facility] Reason for Consult: Medical Management EMERGENT Consult: No MD Notified: Yes Date Notified: 07/21/23 Time Notified: 21:58 Method of Notification: Text Reason For Visit: 360 Lumbar Fusion L4-5 with laminectomy L4-5 on le Diagnosis Discharge Diagnosis (1) Herniation of intervertebral disc between L4 and L5: Status: Chronic Code(s): M51.26 - Other intervertebral disc displacement, lumbar region Medications at Discharge Home Medications citalopram 20 mg tablet 20 mg PO DAILY ANXIETY 11/16/15 topiramate 50 mg tablet (Topamax) 75 mg PO BID migraine 08/24/18 nortriptyline 25 mg capsule 50 mg PO QHS DIRECTED 11/05/18 cetirizine 10 mg capsule (Zyrtec) 10 mg PO DAILY PRN Allergy Symptoms 01/17/21 bupropion HCl 300 mg 24 hr tablet, extended release (Wellbutrin XL) 300 mg PO QAM DEPRESSION 01/21/22 meloxicam 15 mg tablet (Mobic) 15 mg PO QHS PAIN 01/21/22 sumatriptan succinate 25 mg tablet (Imitrex) See Rx Instructions PO .COMPLEX PRN Migraine Headache 01/21/22 ferrous sulfate 325 mg (65 mg iron) tablet (Feosol) 325 mg PO DAILY SUPP multivitamin 1 tab PO DAILY SUPP 01/27/23 Weight / BMI Weight Weight: 268 lb 15.988 oz Body Mass Index (BMI) 49.1 ABG / Lab / Microbiology Data 07/17/23 16:16 D/C Instructions May shower in (days): 3 May resume sexual activity in: 4-6 weeks Meaningful Use Info Meaningful Use Diagnoses (Choose all that apply): None applicable Discharge Plan Admission Admit Date/Time: 07/21/23 05:20 Primary Reason for Your Visit: lumbar fusion Attending Provider: Benjamin Kirk Primary Care Provider: Alex Guerrero Consulting Providers: Joelle Pollack; Aguilar Pope; Lizz Dunlap; Lizz Danielson; Liza Preston; Lawanda Vega; Nikko Cedillo; Louis Sawant; Jeff Busch; Nydia Read; Reggie Padilla; Josue Sexton; Paul Sebastian; Mary Richmond; Lambert Deluca; Rain Mukherjee; Jignesh Wright; Alex Guerrero; Makenna Ruvalcaba; Pedro Luna; Sofie Velazquez [employer]CRA[employer] MAINTENANCE ENGINEER; Pedro Barrera PA Discharge Orders/Prescriptions Prescriptions: No Action topiramate [Topamax] 50 mg tablet 75 mg PO BID Zyrtec 10 mg capsule 10 mg PO DAILY PRN (Reason: Allergy Symptoms) bupropion HCl [Wellbutrin XL] 300 mg tablet extended release 24 hr 300 mg PO QAM meloxicam [Mobic] 15 mg tablet 15 mg PO QHS sumatriptan succinate [Imitrex] 25 mg tablet See Rx Instructions PO .COMPLEX PRN (Reason: Migraine Headache) Rx Instructions: take 1 tab at onset of headache; if no relief may repeat 1 tab after at least 2 hrs; max = 4 tabs/24 hr PO multivitamin Tablet 1 tab PO DAILY ferrous sulfate [Feosol] 325 mg (65 mg iron) tablet 325 mg PO DAILY citalopram 20 MG tablet 20 mg PO DAILY nortriptyline 25 MG capsule 50 mg PO QHS Other Ambulatory Orders: 12 Lead EKG (Routine) Timeframe: [id number] Location: None Selected Ordered By: Dr. Steve Fajardo Referrals / Follow Up: Alex Guerrero MD [Primary Care Provider] - Disposition Disposition (needs filled in before D/C Order can be placed): Home, Self Care
--- NOTE | 2023-07-24 13:05 | CASEMGMT ---
RN CM into pt room, pt states she would like the FWW. Provided pt with FWW and consignment form signed. [place] [facility] [place] [facility].
--- NOTE | 2023-07-24 14:24 | PHA.DC.MR.R ---
Pharm[facility] [place] Med Reconciliation Pharmacy Service has performed discharge medication reconciliation for this patient. No new medications at time of discharge review. Medications reviewed are from previously reported home medications. The patient's discharge medication list was reviewed for discrepancies and discrepancies were resolved. Medications at Discharge Home Medications citalopram 20 mg tablet 20 mg PO DAILY ANXIETY 11/16/15 topiramate 50 mg tablet (Topamax) 75 mg PO BID migraine 08/24/18 nortriptyline 25 mg capsule 50 mg PO QHS DIRECTED 11/05/18 cetirizine 10 mg capsule (Zyrtec) 10 mg PO DAILY PRN Allergy Symptoms 01/17/21 bupropion HCl 300 mg 24 hr tablet, extended release (Wellbutrin XL) 300 mg PO QAM DEPRESSION 01/21/22 meloxicam 15 mg tablet (Mobic) 15 mg PO QHS PAIN 01/21/22 sumatriptan succinate 25 mg tablet (Imitrex) See Rx Instructions PO .COMPLEX PRN Migraine Headache 01/21/22 ferrous sulfate 325 mg (65 mg iron) tablet (Feosol) 325 mg PO DAILY SUPP 01/27/23 multivitamin 1 tab PO DAILY SUPP 01/27/23 oxycodone-acetaminophen 5 mg-325 mg tablet 1 tab PO Q6H PRN pain 10 days #40 tabs 07/24/23
== END 2023-07-24 14:26 | disposition home or self-care (01) | DRG 454 ==
LOC: ACINP 05:21 → MS3 07-22 07:19
PROVIDERS: Admitting Provider Orthopaedic Surgery; PCP Family Medicine; Visit Provider Orthopaedic Surgery
PROC: 0SG00A0 Fusion of Lumbar Vertebral Joint with Interbody Fusion Device, Anterior Approach, Anterior Column, Open Approach (ICD-10-PCS; principal; 2023-07-21 07:00)
DX: M51.26 Other intervertebral disc displacement, lumbar region (principal); Z68.42 Body mass index [BMI] 45.0-49.9, adult; E66.01 Morbid (severe) obesity due to excess calories; F32.A Depression, unspecified; F41.9 Anxiety disorder, unspecified; Z79.899 Other long term (current) drug therapy
CPT/HCPCS: 36415; 72020; 82962; 85025; 86703; 86706; 86708; 86803; 88304; 93005; 94668; 97162; 97530; 99252; A4648; C1713; J7120; A4216; G0463; J2405; J3475

== ENCOUNTER → 2023-12-08 | Outpatient (CLI) | payer BC, SELFPAY | END | disposition home or self-care (01) | LOC: LABSPEC 10:14 | PROVIDERS: PCP Family Medicine; Referring Provider Nurse Practitioner Family; Visit Provider Nurse Practitioner Family | DX: N39.0 Urinary tract infection, site not specified (principal) | CPT/HCPCS: 87077; 87086; 87088; 87186 ==

== ENCOUNTER → 2025-02-28 | Outpatient (CLI) | payer BC, SELFPAY ==
[2025-02-28 07:27] LABS: Anion Gap 10 (5-15); BUN 19 mg/dL (4-19); BUN/Creat Ratio 19.3 RATIO (10-20); Calcium,Total 8.9 mg/dL (7.6-11.0); Carbon Dioxide 23.1 mmol/L (21.0-32.0); Chloride 107 mmol/L (98-108); Cholesterol 225 mg/dL (<=200); Creatinine, Serum 0.96 mg/dL (0.70-1.20); EST Glomerular Filtration Rate 75 (>60); Glucose 105 mg/dL (70-99); High Density Lipoprotein 62 mg/dL; Low Density Lipoprotein Calc. 132 mg/dL; Potassium 3.8 mmol/L (3.3-5.1); Sodium Level 139 mmol/L (133-145); Triglycerides 153 mg/dL; Very Low Density Lipoprotein 31 mg/dL (5-40); Vitamin D,25 Hydroxy 20.9 ng/mL (30-100); cholesterol:hdl ratio screen 3.63
== END | disposition home or self-care (01) ==
LOC: LAB 06:21
PROVIDERS: PCP Family Medicine; Referring Provider Family Medicine; Visit Provider Family Medicine
DX: Z00.00 Encounter for general adult medical examination without abnormal findings (principal)
CPT/HCPCS: 36415; 80048; 80061; 82306

== ENCOUNTER 2025-09-19 16:30 | Outpatient (CLI) | payer BC, SELFPAY ==
--- NOTE | 2025-09-19 16:30 | LES_PTH ---
PATIENT: MARQUIS BRAVO LOC: [facility] U#:[id number] AGE/SX: 44/F ROOM: RE09/19/[address]: Dr. Alex Guerrero MD : 1980 BED: DIS: 09/19/2025 SPEC #: [id number] RECD: 09/19/25 17:51 STATUS: ANGELICA MICKY #: [id number] LONG: 09/19/25 16:[address]: Alex Guerrero DEPT: SURGICAL PATHOLOGY RECD BY: Baltazar Vasquez Tissues: A - Skin of leg, NOS Procedures: Immunohistochemical Stains Surgery Specimen Level IV Comments: Hanna from [facility] called looking for pathology report on 09/29/25. Dr. Newton had ordered a stain and will be completed by tomorrow. I called Hanna back to inform her about the added stain. 09-29-25 @420pm. HEADER OPERATION: Neoplasm of left lower anterior leg, 8mm punch biopsy PRE-OP DIAGNOSIS: Neoplasm of left lower anterior leg TISSUE SUBMITTED: A- Left lower leg neoplasm MICROSCOPIC DIAGNOSIS A. Left lower leg skin, punch biopsy: - Dermal spindle cell proliferation with reactive epidermal hyperplasia - see note. - Mild stasis changes. - IHC for CD34 shows focal peripheral positivity. Note: The biopsy is superficial and does not include the base of the lesion. 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 However, complete excision is recommended should the lesion progress/recur, if clinically indicated. MICROSCOPIC DESCRIPTION Slides are reviewed. All matched controls reacted appropriately. These tests were developed and their performance characteristics determined by [facility]. They may not have been cleared or approved by the [place]. Food and Drug Administration. The FDA has determined that such clearance or approval is not necessary. The above immunohistochemical markers and/or special?stains have been reviewed by the Pathologist. GROSS DESCRIPTION A. Received in formalin labeled with the patient's name and date of . Designated as left leg biopsy is a 1.0 x 0.8 x <0.1 cm haddad to light brown, granular and somewhat verrucoid, ovoid skin shave biopsy, devoid of orientation. The resection margin is inked green and the specimen is trisected. Entirely submitted in 1 cassette. [place] 09/20/2025PT:[id number]
== END 2025-09-19 23:59 | disposition home or self-care (01) ==
PROVIDERS: PCP Family Medicine; Referring Provider Family Medicine; Visit Provider Family Medicine
DX: C44.709 Unspecified malignant neoplasm of skin of left lower limb, including hip (principal)
CPT/HCPCS: 88305; 88342